=== PATIENT | male | born 1960 | race Caucasian/White ===

== ENCOUNTER 2017-05-21 18:24 | Observation (INO) | payer SELFPAY ==
[~2017-05-21] VITALS: Ht 172.7 cm; Wt 58.8 kg
[2017-05-21] MEDS ORDERED: ASPI-496 PO (18:53)
[2017-05-21] MEDS ORDERED: ONDANSETRON 2MG/ML, 2ML IVPush ONE (19:00)
[2017-05-21] MEDS ORDERED: SODIUM CHLORIDE FLUSH 10ML SYR IVF ONE (19:00)
[2017-05-21] MEDS: ASPIRIN 81 MG TABLET CHEW PO ONE ×2 (19:00→23:21)
[2017-05-21] MEDS ORDERED: MORPHINE SULFATE 4 MG/ML, 1ML ONE ×2 (19:12→22:31)
[2017-05-21] MEDS ORDERED: ONDANSETRON 2MG/ML, 2ML ONE (19:12)
[2017-05-21] MEDS: MORPHINE SULFATE 4 MG/ML, 1ML IVPush PRN ×2 (19:16→22:33)
[2017-05-21 19:30] LABS: BLOOD UREA NITROGEN 16 mg/dL (7-18)
[2017-05-21 19:35] LABS: IS PT STATUS REG ER OR PRE ER? YES
[2017-05-21 23:11] LABS: IS PT STATUS REG ER OR PRE ER? YES
[2017-05-21] MEDS ORDERED: ASPIRIN 81 MG TABLET CHEW ONE ×2 (23:16→23:19)
[2017-05-22 00:49] VITALS: BP 141/89
[2017-05-22 02:30] VITALS: BP 141/89
[2017-05-22 07:13] LABS: IS PT STATUS REG ER OR PRE ER? NO
[2017-05-22] MEDS ORDERED: IBUP400T PO (07:15)
[2017-05-22 08:24] VITALS: BP 118/80
[2017-05-22] MEDS ORDERED: ASPIRIN 81 MG TABLET EC PO SCH (09:00)
[2017-05-22] MEDS ORDERED: CALCIUM CARBONATE 500 MG TABLET PO SCH (09:00)
== END 2017-05-22 09:44 | disposition home or self-care (01) ==
LOC: ED 21:29 → EDIP 23:15 → INTOOBSV 23:15 → 5SO 05-22 00:36
PROVIDERS: ADMIT Internal Medicine; ATTEND Internal Medicine
DX: M94.0 Chondrocostal junction syndrome [Tietze] (principal); I25.10 Atherosclerotic heart disease of native coronary artery without angina pectoris; I25.2 Old myocardial infarction; Z95.5 Presence of coronary angioplasty implant and graft; I10 Essential (primary) hypertension; Z83.3 Family history of diabetes mellitus; D72.828 Other elevated white blood cell count; E83.51 Hypocalcemia
CPT/HCPCS: 36415; 71010; 80048; 82040; 83880; 84484; 85025; 93005; 96374; 96375; 96376; 99285; G0378; J2405

== ENCOUNTER 2017-07-07 18:53 | Inpatient (IN) | payer MEDICAID, OTHER ==
[~2017-07-07] VITALS: Ht 172.7 cm; Wt 60.1 kg
[~2017-07-07 18:53] MED LIST: ASPI-496 PO; IBUP400T PO
[2017-07-07 19:51] LABS: HEMATOCRIT 46.4 % (39.2-51.8); HEMOGLOBIN 15.3 g/dL (13.7-18.0); WHITE BLOOD COUNT 14.9 x10^3/uL (3.4-10)
[2017-07-07 20:02] LABS: BLOOD UREA NITROGEN 18 mg/dL (7-18)
[2017-07-07 20:06] LABS: IS PT STATUS REG ER OR PRE ER? YES
[2017-07-07 21:06] LABS: IS PT STATUS REG ER OR PRE ER? YES
[2017-07-07] MEDS ORDERED: CEFTRIAXONE PMX 1GM/50ML 50 ML ONE (21:23)
[2017-07-07] MEDS ORDERED: SODIUM CHLORIDE FLUSH 10ML SYR IVF PRN (21:30)
[2017-07-07] MEDS ORDERED: HEPARIN 5,000 UNITS/ML, 1ML IV ONE (21:30)
[2017-07-07] MEDS ORDERED: HEPARIN 25,000 UNITS/500ML PMX 500 ML IV PRN (21:30)
[2017-07-07] MEDS ORDERED: HEPARIN 5,000 UNITS/ML, 1ML IV PRN (21:30)
[2017-07-07] MEDS ORDERED: CEFTRIAXONE PMX 1GM/50ML 50 ML IV ONE (21:30)
[2017-07-07] MEDS ORDERED: HEPARIN 5,000 UNITS/ML, 1ML ONE (21:38)
[2017-07-07] MEDS ORDERED: HEPARIN 25,000 UNITS/500ML PMX 500 ML ONE (21:38)
[2017-07-07 22:16] VITALS: BP 134/91
[2017-07-07] MEDS ORDERED: ENALAPRILAT 1.25 MG/ML, 2ML IVPush PRN (23:00)
[2017-07-07] MEDS ORDERED: morphine SULFATE 10 MG/ML, 1ML IVPush PRN (23:00)
[2017-07-07] MEDS ORDERED: NITROGLYCERIN 0.4 MG BOTTLE (25 TABS) SL PRN (23:00)
[2017-07-07] MEDS ORDERED: ONDANSETRON 2MG/ML, 2ML IVPush PRN (23:00)
[2017-07-07] MEDS ORDERED: TEMAZEPAM 15 MG CAPSULE PO PRN (23:00)
[2017-07-08] MEDS: ATORVASTATIN 20 MG TABLET PO SCH ×2 (00:37→20:57)
[2017-07-08] MEDS: METOPROLOL TARTRATE 25 MG TABLET PO SCH ×4 (00:37→20:57)
[2017-07-08] MEDS: SODIUM CHLORIDE 0.9% 1,000 ML IV SCH ×2 (00:37→14:07)
[2017-07-08 02:00] VITALS: BP 133/89
[2017-07-08 03:15] LABS: IS PT STATUS REG ER OR PRE ER? NO
[2017-07-08 04:14] LABS: HEMATOCRIT 46.1 % (39.2-51.8); HEMOGLOBIN 15.1 g/dL (13.7-18.0); WHITE BLOOD COUNT 11.8 x10^3/uL (3.4-10)
[2017-07-08 04:27] LABS: BLOOD UREA NITROGEN 18 mg/dL (7-18)
[2017-07-08] MEDS ORDERED: HEPARIN 5,000 UNITS/ML, 1ML IV PRN (05:30)
[2017-07-08] MEDS ORDERED: HEPARIN 25,000 UNITS/500ML PMX 500 ML IV PRN ×2 (05:30)
[2017-07-08 08:47] LABS: IS PT STATUS REG ER OR PRE ER? NO
[2017-07-08 09:24] VITALS: BP 130/85
[2017-07-08] MEDS: CEFTAZIDIME PMX 2 GM/50ML 50 ML IV SCH ×2 (09:25→20:58)
[2017-07-08 14:07] VITALS: BP 124/81
[2017-07-08] MEDS ORDERED: MIDAZOLAM 1 MG/ML, 5ML ONE (16:40)
[2017-07-08] MEDS ORDERED: FENTANYL PF 100 MCG/2ML ONE (16:40)
[2017-07-08] MEDS ORDERED: LIDOCAINE 2%, 20ML ONE (16:41)
[2017-07-08] MEDS ORDERED: HEPARIN 1,000 UNITS/ML, 10ML ONE (16:41)
[2017-07-08] MEDS ORDERED: TICAGRELOR 90 MG TABLET ONE (16:41)
[2017-07-08] MEDS ORDERED: VERAPAMIL 2.5 MG/ML, 2ML ONE (16:41)
[2017-07-08] MEDS ORDERED: BIVALIRUDIN 250 MG ONE (16:41)
[2017-07-08 18:40] VITALS: BP 115/79
[2017-07-08] MEDS: ACETAMINOPHEN 325 MG TABLET PO PRN (21:00)
[2017-07-09 01:29] VITALS: BP 112/75
[2017-07-09] MEDS: SODIUM CHLORIDE 0.9% 1,000 ML IV SCH ×2 (02:50→15:31)
[2017-07-09] MEDS: ACETAMINOPHEN 325 MG TABLET PO PRN (04:21)
[2017-07-09 05:38] LABS: HEMATOCRIT 44.1 % (39.2-51.8); HEMOGLOBIN 14.6 g/dL (13.7-18.0); WHITE BLOOD COUNT 12.4 x10^3/uL (3.4-10)
[2017-07-09 06:03] LABS: BLOOD UREA NITROGEN 14 mg/dL (7-18)
[2017-07-09 06:40] VITALS: BP 127/84
[2017-07-09] MEDS: CLOPIDOGREL 75 MG TABLET PO SCH (08:48)
[2017-07-09] MEDS: CEFTAZIDIME PMX 2 GM/50ML 50 ML IV SCH (08:48)
[2017-07-09] MEDS: METOPROLOL TARTRATE 25 MG TABLET PO SCH ×2 (08:48→19:52)
[2017-07-09] MEDS: ASPIRIN 81 MG TABLET EC PO SCH (08:48)
[2017-07-09] MEDS: AMOXICILLIN/CLAV 875-125MG TABLET PO SCH ×2 (09:53→19:52)
[2017-07-09] MEDS: LISINOPRIL 5 MG TABLET PO SCH (09:53)
[2017-07-09 14:32] VITALS: BP 146/97
[2017-07-09 19:28] VITALS: BP 112/71
[2017-07-09] MEDS: ATORVASTATIN 20 MG TABLET PO SCH (19:52)
[2017-07-10 01:49] VITALS: BP 97/62
[2017-07-10] MEDS: SODIUM CHLORIDE 0.9% 1,000 ML IV SCH (05:30)
[2017-07-10 05:49] LABS: HEMOGLOBIN 14.9 g/dL (13.7-18.0); WHITE BLOOD COUNT 11.1 x10^3/uL (3.4-10)
[2017-07-10] MEDS: ASPIRIN 81 MG TABLET EC PO SCH (06:21)
[2017-07-10 06:47] VITALS: BP 122/75
[2017-07-10] MEDS: METOPROLOL TARTRATE 25 MG TABLET PO SCH (07:59)
[2017-07-10] MEDS: AMOXICILLIN/CLAV 875-125MG TABLET PO SCH (07:59)
[2017-07-10] MEDS: CLOPIDOGREL 75 MG TABLET PO SCH (07:59)
[2017-07-10] MEDS: LISINOPRIL 5 MG TABLET PO SCH (08:00)
[2017-07-10] MEDS ORDERED: METO25TA35 PO (08:33)
[2017-07-10] MEDS ORDERED: ASPI-621 PO (08:33)
[2017-07-10] MEDS ORDERED: LISI5TAB7 PO (08:33)
[2017-07-10] MEDS ORDERED: AMOX1TAB12 PO (08:33)
[2017-07-10] MEDS ORDERED: CLOP75TA PO (08:33)
[2017-07-10] MEDS ORDERED: ATOR20TA9 PO (08:33)
[2017-07-10 12:49] VITALS: BP 123/81
== END 2017-07-10 15:15 | disposition home or self-care (01) | DRG 281 ==
LOC: ED 21:34 → EDIP 21:40 → 5SO 22:14 → DCLOUNGE 07-10 14:06
PROVIDERS: ADMIT Internal Medicine; ATTEND Internal Medicine
PROC: 4A023N7 Measurement of Cardiac Sampling and Pressure, Left Heart, Percutaneous Approach (ICD-10-PCS; principal; 2017-07-08)
PROC: B2111ZZ Fluoroscopy of Multiple Coronary Arteries using Low Osmolar Contrast (ICD-10-PCS; 2017-07-08)
PROC: B2151ZZ Fluoroscopy of Left Heart using Low Osmolar Contrast (ICD-10-PCS; 2017-07-08)
DX: I21.09 ST elevation (STEMI) myocardial infarction involving other coronary artery of anterior wall (principal); L03.115 Cellulitis of right lower limb; E78.5 Hyperlipidemia, unspecified; D47.3 Essential (hemorrhagic) thrombocythemia; I25.5 Ischemic cardiomyopathy; I11.9 Hypertensive heart disease without heart failure; I25.10 Atherosclerotic heart disease of native coronary artery without angina pectoris; I25.2 Old myocardial infarction; Z82.49 Family history of ischemic heart disease and other diseases of the circulatory system; Z83.3 Family history of diabetes mellitus; Z86.73 Personal history of transient ischemic attack (TIA), and cerebral infarction without residual deficits; Z87.891 Personal history of nicotine dependence; Z91.14 Patient's other noncompliance with medication regimen; Z91.19 Patient's noncompliance with other medical treatment and regimen; Z95.5 Presence of coronary angioplasty implant and graft; Z98.41 Cataract extraction status, right eye
CPT/HCPCS: 36415; 80048; 80061; 82040; 83735; 84100; 84439; 84443; 84484; 85025; 85520; 93005; 93306; 93458; 96374; 99156; C1894; J0583; J0696; J1644; J2250; J3010; J3490; J0713; J2270; J7030; Q9967

== ENCOUNTER 2017-08-07 18:30 | Inpatient (IN) | payer MEDICAID, OTHER ==
[~2017-08-07] VITALS: Ht 172.7 cm; Wt 57.1 kg
[~2017-08-07 18:30] MED LIST changes: +AMOX1TAB12 PO; +ASPI-621 PO; +ATOR20TA9 PO; +CLOP75TA PO; +IBUP-1221 PO; -IBUP400T PO; +LISI5TAB7 PO; +METO25TA35 PO
[2017-08-07] MEDS ORDERED: ASPIRIN 81 MG TABLET CHEW PO ONE (19:00)
[2017-08-07] MEDS ORDERED: SODIUM CHLORIDE FLUSH 10ML SYR IVF ONE (19:00)
[2017-08-07] MEDS ORDERED: MORPHINE SULFATE 4 MG/ML, 1ML IVPush PRN (19:00)
[2017-08-07] MEDS ORDERED: ONDANSETRON 2MG/ML, 2ML IVPush ONE (19:00)
[2017-08-07 19:27] LABS: HEMATOCRIT 51.6 % (39.2-51.8); HEMOGLOBIN 17.2 g/dL (13.7-18.0); WHITE BLOOD COUNT 15.9 x10^3/uL (3.4-10)
[2017-08-07 19:30] LABS: BLOOD UREA NITROGEN 12 mg/dL (7-18)
[2017-08-07 19:35] LABS: IS PT STATUS REG ER OR PRE ER? YES
[2017-08-07] MEDS ORDERED: MORPHINE SULFATE 4 MG/ML, 1ML ONE (19:44)
[2017-08-07] MEDS ORDERED: ASPIRIN 81 MG TABLET CHEW ONE (19:45)
[2017-08-07] MEDS ORDERED: ONDANSETRON 2MG/ML, 2ML ONE (19:45)
[2017-08-07] MEDS ORDERED: NITROGLYCERIN SINGLE TAB 0.4 MG SL ONE ×2 (19:52→20:26)
[2017-08-07] MEDS: NITROGLYCERIN SINGLE TAB 0.4 MG SL PRN ×2 (20:00→20:30)
[2017-08-07] MEDS ORDERED: KETOROLAC 30 MG/1 ML ONE (20:55)
[2017-08-07] MEDS ORDERED: KETOROLAC 30 MG/1 ML IVPush ONE (21:00)
[2017-08-07] MEDS ORDERED: NS + 20MEQ KCL 1,000 ML IV SCH (21:27)
[2017-08-07] MEDS ORDERED: ACETAMINOPHEN 325 MG TABLET PO PRN (21:30)
[2017-08-07] MEDS ORDERED: DOCUSATE 100 MG CAPSULE PO PRN (21:30)
[2017-08-07] MEDS ORDERED: POLYETHYLENE GLYCOL 17 GM PACKET PO PRN (21:30)
[2017-08-07] MEDS ORDERED: ONDANSETRON 2MG/ML, 2ML IVPush PRN (21:30)
[2017-08-07] MEDS ORDERED: morphine SULFATE 10 MG/ML, 1ML IVPush PRN (21:30)
[2017-08-07] MEDS ORDERED: HYDROcodone/APAP 5/325 TABLET PO PRN (21:30)
[2017-08-07] MEDS ORDERED: ATORVASTATIN 20 MG TABLET PO SCH (21:30)
[2017-08-08] MEDS: METOPROLOL TARTRATE 25 MG TABLET PO SCH ×2 (00:23→08:14)
[2017-08-08 01:53] VITALS: BP 113/76
[2017-08-08] MEDS ORDERED: ASPIRIN 81 MG TABLET EC PO SCH (06:00)
[2017-08-08 06:21] LABS: IS PT STATUS REG ER OR PRE ER? NO
[2017-08-08 08:13] VITALS: BP 115/72
[2017-08-08] MEDS ORDERED: CLOPIDOGREL 75 MG TABLET PO SCH (09:00)
[2017-08-08] MEDS ORDERED: LISINOPRIL 5 MG TABLET PO SCH (09:00)
[2017-08-08] MEDS ORDERED: SENNA/DOCUSATE TABLET PO SCH (09:00)
[2017-08-08 10:36] LABS: HEMATOCRIT 47.2 % (39.2-51.8); HEMOGLOBIN 15.7 g/dL (13.7-18.0); WHITE BLOOD COUNT 11.1 x10^3/uL (3.4-10)
[2017-08-08 10:44] LABS: IS PT STATUS REG ER OR PRE ER? NO
[2017-08-08 14:00] VITALS: BP 120/62
[2017-08-08] MEDS ORDERED: LISI5TAB7 PO (15:44)
[2017-08-08] MEDS ORDERED: METO25TA35 PO (15:44)
[2017-08-08] MEDS ORDERED: ASPI-621 PO (15:44)
[2017-08-08] MEDS ORDERED: ATOR20TA9 PO (15:44)
[2017-08-08] MEDS ORDERED: CLOP75TA PO (15:44)
== END 2017-08-08 19:10 | disposition home or self-care (01) | DRG 313 ==
LOC: ED 20:57 → EDIP 21:02 → SUATTDRO 21:08 → ED 21:32 → 5SO 22:14
PROVIDERS: ADMIT Family Medicine; ATTEND Family Medicine
DX: R07.89 Other chest pain (principal); I25.2 Old myocardial infarction; E44.0 Moderate protein-calorie malnutrition; Z68.1 Body mass index [BMI] 19.9 or less, adult; I25.10 Atherosclerotic heart disease of native coronary artery without angina pectoris; D72.829 Elevated white blood cell count, unspecified; D75.89 Other specified diseases of blood and blood-forming organs; E78.5 Hyperlipidemia, unspecified; I10 Essential (primary) hypertension; I25.5 Ischemic cardiomyopathy; Z66 Do not resuscitate; Z82.49 Family history of ischemic heart disease and other diseases of the circulatory system; Z83.3 Family history of diabetes mellitus; Z95.5 Presence of coronary angioplasty implant and graft; Z91.14 Patient's other noncompliance with medication regimen; Z90.49 Acquired absence of other specified parts of digestive tract; Z98.49 Cataract extraction status, unspecified eye; Z79.82 Long term (current) use of aspirin; Z79.899 Other long term (current) drug therapy
CPT/HCPCS: 36415; 71010; 80048; 82040; 83880; 84484; 85025; 93005; 96374; 96375; J1885; J2405; J3480; J2270

== ENCOUNTER 2018-01-15 20:16 | Emergency (ER) | payer MEDICAID ==
[~2018-01-15] VITALS: Ht 172.7 cm; Wt 62.8 kg
[2018-01-15 20:54] LABS: BASOPHILS # (AUTO) 0.06 x10^3/uL (0-0.1); BASOPHILS % (AUTO) 1 % (0-1); EOSINOPHILS # (AUTO) 0.43 x10^3/uL (0-0.4); EOSINOPHILS % (AUTO) 3 % (1-7); LYMPHOCYTES # (AUTO) 2.35 x10^3/uL (1-3.4); LYMPHOCYTES % (AUTO) 19 % (22-44); MD NO; MEAN CORPUSCULAR HEMOGLOBIN 26.6 pg (27.5-34.5); MEAN CORPUSCULAR HGB CONC 32.8 g/dL (33.2-36.2); MEAN CORPUSCULAR VOLUME 81.1 fL (81-97); MEAN PLATELET VOLUME 7.3 fL (7.4-10.4); MONOCYTES # (AUTO) 0.64 x10^3/uL (0.2-0.8); MONOCYTES % (AUTO) 5 % (2-9); NEUTROPHILS # (AUTO) 9.27 x10^3/uL (1.8-6.8); NEUTROPHILS % (AUTO) 73 % (42-75); PLATELET COUNT 802 x10^3/uL (130-400); RED BLOOD COUNT 6.71 x10^6/uL (4.38-5.82); RED CELL DISTRIBUTION WIDTH 16.6 % (9.4-14.8)
[2018-01-15] MEDS ORDERED: SODIUM CHLORIDE FLUSH 10ML SYR IVF ONE ×2 (21:00→21:30)
[2018-01-15 21:07] LABS: ALBUMIN 3.4 g/dL (3.4-5.0); ANION GAP 7 mmol/L (5-15); CALCIUM 8.1 mg/dL (8.5-10.1); CHLORIDE 106 mmol/L (98-107)
[2018-01-15 21:11] LABS: TROPONIN I < 0.015 ng/mL (0.000-0.045)
[2018-01-15 21:26] VITALS: BP 123/84
[2018-01-15] MEDS ORDERED: MORPHINE SULFATE 4 MG/ML, 1ML ONE (21:30)
[2018-01-15] MEDS ORDERED: MORPHINE SULFATE 4 MG/ML, 1ML IVPush PRN (21:30)
[2018-01-15] MEDS ORDERED: ONDANSETRON 2MG/ML, 2ML IVPush ONE (21:30)
[2018-01-15] MEDS ORDERED: ASPIRIN 81 MG TABLET CHEW PO ONE (21:30)
[2018-01-15] MEDS ORDERED: ONDANSETRON 2MG/ML, 2ML ONE (21:31)
[2018-01-15] MEDS ORDERED: ASPIRIN 81 MG TABLET CHEW ONE (21:31)
== END 2018-01-15 23:06 | disposition home or self-care (01) ==
LOC: ED 22:54
DX: R07.89 Other chest pain (principal); I10 Essential (primary) hypertension; I25.10 Atherosclerotic heart disease of native coronary artery without angina pectoris; I25.2 Old myocardial infarction; Z79.82 Long term (current) use of aspirin; Z95.1 Presence of aortocoronary bypass graft
CPT/HCPCS: 36415; 71046; 80048; 82040; 84484; 85025; 93005; 99285

== ENCOUNTER 2018-06-11 20:49 | Emergency (ER) | payer MEDICAID ==
[~2018-06-11] VITALS: Ht 172.7 cm; Wt 58.0 kg
[2018-06-11] MEDS ORDERED: ASPIRIN 325 MG TABLET ONE (21:54)
[2018-06-11] MEDS ORDERED: ASPIRIN 325 MG TABLET PO ONE (22:00)
[2018-06-11 22:04] LABS: BASOPHILS # (AUTO) 0.04 x10^3/uL (0-0.1); BASOPHILS % (AUTO) 0 % (0-1); EOSINOPHILS # (AUTO) 0.23 x10^3/uL (0-0.4); EOSINOPHILS % (AUTO) 2 % (1-7); LYMPHOCYTES # (AUTO) 1.68 x10^3/uL (1-3.4); LYMPHOCYTES % (AUTO) 13 % (22-44); MD NO; MEAN CORPUSCULAR HEMOGLOBIN 26.2 pg (27.5-34.5); MEAN CORPUSCULAR HGB CONC 32.9 g/dL (33.2-36.2); MEAN CORPUSCULAR VOLUME 79.6 fL (81-97); MEAN PLATELET VOLUME 7.4 fL (7.4-10.4); MONOCYTES # (AUTO) 0.64 x10^3/uL (0.2-0.8); MONOCYTES % (AUTO) 5 % (2-9); NEUTROPHILS # (AUTO) 10.86 x10^3/uL (1.8-6.8); NEUTROPHILS % (AUTO) 81 % (42-75); PLATELET COUNT 704 x10^3/uL (130-400); RED BLOOD COUNT 6.46 x10^6/uL (4.38-5.82); RED CELL DISTRIBUTION WIDTH 16.5 % (9.4-14.8)
[2018-06-11 22:15] LABS: ALBUMIN 3.5 g/dL (3.4-5.0); ANION GAP 5 mmol/L (5-15); CALCIUM 9.1 mg/dL (8.5-10.1); CHLORIDE 105 mmol/L (98-107)
[2018-06-11 22:20] LABS: ALANINE AMINOTRANSFERASE 25 U/L (12-78); ALKALINE PHOSPHATASE 51 U/L (45-117); BILIRUBIN,TOTAL 0.5 mg/dL (0.2-1.0); CREATININE 1.07 mg/dL (0.7-1.3); TOTAL PROTEIN 6.5 g/dL (6.4-8.2); TROPONIN I < 0.015 ng/mL (0.000-0.045)
[2018-06-11 23:14] VITALS: BP 123/89
== END 2018-06-11 23:16 | disposition home or self-care (01) ==
LOC: ED 22:53
DX: R07.89 Other chest pain (principal); R20.2 Paresthesia of skin; I25.10 Atherosclerotic heart disease of native coronary artery without angina pectoris; Z95.818 Presence of other cardiac implants and grafts
CPT/HCPCS: 36415; 71046; 80053; 84484; 85025; 93005; 99285

== ENCOUNTER 2018-07-01 23:40 | Emergency (ER) | payer MEDICAID ==
[~2018-07-01] VITALS: Ht 172.7 cm; Wt 59.0 kg
[2018-07-02] MEDS ORDERED: DIPHENHYDRAMINE 50 MG/ML, 1ML ONE (00:24)
[2018-07-02] MEDS ORDERED: METOCLOPRAMIDE 5 MG/ML, 2ML ONE (00:24)
[2018-07-02] MEDS ORDERED: METOCLOPRAMIDE 5 MG/ML, 2ML IVPush ONE (00:30)
[2018-07-02] MEDS ORDERED: SODIUM CHLORIDE 0.9% 1,000ML IVBOLUS ONE (00:30)
[2018-07-02] MEDS ORDERED: DIPHENHYDRAMINE 50 MG/ML, 1ML IVPush ONE (00:30)
[2018-07-02 00:48] LABS: BASOPHILS # (AUTO) 0.05 x10^3/uL (0-0.1); BASOPHILS % (AUTO) 1 % (0-1); EOSINOPHILS # (AUTO) 0.27 x10^3/uL (0-0.4); EOSINOPHILS % (AUTO) 3 % (1-7); LYMPHOCYTES # (AUTO) 1.62 x10^3/uL (1-3.4); LYMPHOCYTES % (AUTO) 16 % (22-44); MD NO; MEAN CORPUSCULAR HEMOGLOBIN 26.1 pg (27.5-34.5); MEAN CORPUSCULAR HGB CONC 32.7 g/dL (33.2-36.2); MEAN CORPUSCULAR VOLUME 79.7 fL (81-97); MEAN PLATELET VOLUME 7.2 fL (7.4-10.4); MONOCYTES # (AUTO) 0.47 x10^3/uL (0.2-0.8); MONOCYTES % (AUTO) 5 % (2-9); NEUTROPHILS # (AUTO) 7.48 x10^3/uL (1.8-6.8); NEUTROPHILS % (AUTO) 76 % (42-75); PLATELET COUNT 604 x10^3/uL (130-400); RED BLOOD COUNT 6.12 x10^6/uL (4.38-5.82); RED CELL DISTRIBUTION WIDTH 16.3 % (9.4-14.8)
[2018-07-02 00:51] LABS: ALANINE AMINOTRANSFERASE 21 U/L (12-78); ANION GAP 7 mmol/L (5-15); CALCIUM 7.7 mg/dL (8.5-10.1); CHLORIDE 109 mmol/L (98-107); CREATININE 1.03 mg/dL (0.7-1.3)
[2018-07-02 00:53] LABS: ALKALINE PHOSPHATASE 43 U/L (45-117); BILIRUBIN,TOTAL 0.5 mg/dL (0.2-1.0); TOTAL PROTEIN 5.8 g/dL (6.4-8.2)
[2018-07-02 01:19] VITALS: BP 134/76
== END 2018-07-02 01:21 | disposition home or self-care (01) ==
LOC: ED 23:59
DX: J01.00 Acute maxillary sinusitis, unspecified (principal)
CPT/HCPCS: 36415; 70450; 80053; 80307; 83690; 85025; 96374; 96375; 99285; J1200; J2765; J7030

== ENCOUNTER 2018-08-22 00:45 | Observation (INO) | payer MEDICAID ==
[~2018-08-22] VITALS: Ht 172.7 cm; Wt 58.1 kg
[2018-08-22] MEDS ORDERED: ESCI10TA10 PO (01:04)
[2018-08-22] MEDS ORDERED: NITROGLYCERIN SINGLE TAB 0.4 MG SL ONE (01:19)
[2018-08-22] MEDS ORDERED: ASPIRIN 81 MG TABLET CHEW ONE (01:19)
[2018-08-22] MEDS ORDERED: NITROGLYCERIN SINGLE TAB 0.4 MG SL PRN (01:30)
[2018-08-22] MEDS ORDERED: SODIUM CHLORIDE FLUSH 10ML SYR IVF ONE (01:30)
[2018-08-22] MEDS ORDERED: ASPIRIN 81 MG TABLET CHEW PO ONE (01:30)
[2018-08-22] MEDS ORDERED: MORPHINE SULFATE 4 MG/ML, 1ML ONE (01:47)
[2018-08-22] MEDS: MORPHINE SULFATE 4 MG/ML, 1ML IVPush PRN ×2 (01:49→03:24)
[2018-08-22 01:59] LABS: BASOPHILS # (AUTO) 0.05 x10^3/uL (0-0.1); BASOPHILS % (AUTO) 0 % (0-1); EOSINOPHILS % (AUTO) 3 % (1-7); LYMPHOCYTES # (AUTO) 2.05 x10^3/uL (1-3.4); LYMPHOCYTES % (AUTO) 16 % (22-44); MD NO; MEAN CORPUSCULAR HEMOGLOBIN 26.4 pg (27.5-34.5); MEAN CORPUSCULAR HGB CONC 33.4 g/dL (33.2-36.2); MEAN PLATELET VOLUME 7.1 fL (7.4-10.4); MONOCYTES # (AUTO) 0.57 x10^3/uL (0.2-0.8); MONOCYTES % (AUTO) 4 % (2-9); NEUTROPHILS # (AUTO) 9.83 x10^3/uL (1.8-6.8); NEUTROPHILS % (AUTO) 76 % (42-75); PLATELET COUNT 736 x10^3/uL (130-400); RED CELL DISTRIBUTION WIDTH 17.7 % (9.4-14.8)
[2018-08-22 02:04] LABS: INTERNATIONAL NORMALIZED RATIO 1.04 (0.93-1.1); PROTHROMBIN TIME 10.8 Seconds (9.6-11.5)
[2018-08-22 02:05] LABS: ALBUMIN 3.7 g/dL (3.4-5.0); ANION GAP 8 mmol/L (5-15); CALCIUM 8.8 mg/dL (8.5-10.1); CHLORIDE 106 mmol/L (98-107)
[2018-08-22 02:11] LABS: ALANINE AMINOTRANSFERASE 20 U/L (12-78); ALKALINE PHOSPHATASE 55 U/L (45-117); BILIRUBIN,TOTAL 0.8 mg/dL (0.2-1.0); CREATININE 1.07 mg/dL (0.7-1.3); TOTAL PROTEIN 6.8 g/dL (6.4-8.2); TROPONIN I 0.016 ng/mL (0.000-0.045)
[2018-08-22] MEDS ORDERED: SODIUM CHLORIDE FLUSH 10ML SYR IVF PRN (02:30)
[2018-08-22 03:03] VITALS: BP 157/100
[2018-08-22] MEDS ORDERED: SODIUM CHLORIDE 0.9% 1,000 ML IV SCH (04:27)
[2018-08-22] MEDS ORDERED: ACETAMINOPHEN 325 MG TABLET PO PRN (04:30)
[2018-08-22] MEDS ORDERED: DOCUSATE 100 MG CAPSULE PO PRN (04:30)
[2018-08-22] MEDS ORDERED: POLYETHYLENE GLYCOL 17 GM PACKET PO PRN (04:30)
[2018-08-22] MEDS ORDERED: hydrALAzine 20 MG/ML, 1ML IVPush PRN (04:30)
[2018-08-22] MEDS ORDERED: ONDANSETRON 2MG/ML, 2ML IVPush PRN (04:30)
[2018-08-22] MEDS ORDERED: PROMETHAZINE 25 MG/ML, 1ML IM PRN (04:30)
[2018-08-22] MEDS ORDERED: NITROGLYCERIN 0.4 MG BOTTLE (25 TABS) SL PRN (04:30)
[2018-08-22] MEDS ORDERED: OXYcodone IR 5MG TABLET PO PRN (04:30)
[2018-08-22] MEDS ORDERED: morphine SULFATE 10 MG/ML, 1ML IVPush PRN (04:30)
[2018-08-22] MEDS ORDERED: LABETALOL 5MG/ML, 20ML IVPush PRN (04:30)
[2018-08-22] MEDS ORDERED: ONDANSETRON ODT 4 MG PO PRN (04:30)
[2018-08-22] MEDS ORDERED: BISACODYL 10 MG SUPP PR PRN (04:30)
[2018-08-22] MEDS: ASPIRIN 325 MG TABLET EC PO SCH (05:01)
[2018-08-22] MEDS: HEPARIN 5,000 UNITS/ML, 1ML SQ SCH ×3 (05:02→21:46)
[2018-08-22 05:41] LABS: CULTURE INDICATED? NO; MICROSCOPIC NOT IND
[2018-08-22 06:02] LABS: FREE T4 (FREE THYROXINE) 0.9 ng/dL (0.76-1.46); THYROID STIMULATING HORMONE 1.07 mIU/L (0.358-3.740)
[2018-08-22 06:05] LABS: HEMOGLOBIN A1C 5.2 % (4.2-6.3)
[2018-08-22 06:11] LABS: CHOL/HDL RATIO 2.4; CHOLESTEROL, TOTAL 127 mg/dL (140-239); HDL CHOL % 41 % (26-37); HDL CHOLESTEROL (DIRECT) 52 mg/dL (40-60); LDL CHOLESTEROL,CALCULATED 64 mg/dL (54-169); LDL/HDL RATIO 1.2 (0.5-3.0); TRIGLYCERIDES 57 mg/dL (50-200); TROPONIN I 0.022 ng/mL (0.000-0.045); VLDL CHOLESTEROL 11 mg/dL (0-25)
[2018-08-22 06:44] VITALS: BP 143/90
[2018-08-22] MEDS: LOSARTAN 50MG TABLET PO SCH (08:13)
[2018-08-22] MEDS: CITALOPRAM 20 MG TABLET PO SCH (08:13)
[2018-08-22] MEDS ORDERED: REGADENOSON 0.4 MG/5 ML SYRINGE ONE (08:20)
[2018-08-22] MEDS ORDERED: NITR0.4T28 SL (12:42)
[2018-08-22] MEDS ORDERED: ATOR40TA78 PO (12:42)
[2018-08-22] MEDS ORDERED: LISI-167 PO (12:42)
[2018-08-22 13:26] LABS: BASOPHILS # (AUTO) 0.03 x10^3/uL (0-0.1); BASOPHILS % (AUTO) 0 % (0-1); EOSINOPHILS # (AUTO) 0.25 x10^3/uL (0-0.4); EOSINOPHILS % (AUTO) 2 % (1-7); LYMPHOCYTES % (AUTO) 10 % (22-44); MD NO; MEAN CORPUSCULAR HEMOGLOBIN 25.7 pg (27.5-34.5); MEAN CORPUSCULAR HGB CONC 32.8 g/dL (33.2-36.2); MEAN CORPUSCULAR VOLUME 78.3 fL (81-97); MEAN PLATELET VOLUME 7.1 fL (7.4-10.4); MONOCYTES % (AUTO) 3 % (2-9); NEUTROPHILS # (AUTO) 10.35 x10^3/uL (1.8-6.8); NEUTROPHILS % (AUTO) 85 % (42-75); PLATELET COUNT 661 x10^3/uL (130-400); RED BLOOD COUNT 6.58 x10^6/uL (4.38-5.82); RED CELL DISTRIBUTION WIDTH 17.9 % (9.4-14.8)
[2018-08-22] MEDS ORDERED: GABAPENTIN 100 MG CAPSULE PO PRN (13:30)
[2018-08-22 13:33] LABS: TROPONIN I < 0.015 ng/mL (0.000-0.045)
[2018-08-22 13:42] VITALS: BP 142/93
[2018-08-22] MEDS: METOPROLOL TARTRATE 25 MG TABLET PO SCH (18:03)
[2018-08-22 18:39] VITALS: BP 122/77
[2018-08-22] MEDS ORDERED: ATORVASTATIN 20 MG TABLET PO SCH (21:00)
[2018-08-23 01:08] VITALS: BP 139/91
[2018-08-23 04:53] LABS: BASOPHILS # (AUTO) 0.13 x10^3/uL (0-0.1); BASOPHILS % (AUTO) 1 % (0-1); EOSINOPHILS # (AUTO) 0.43 x10^3/uL (0-0.4); EOSINOPHILS % (AUTO) 4 % (1-7); LYMPHOCYTES # (AUTO) 1.79 x10^3/uL (1-3.4); LYMPHOCYTES % (AUTO) 15 % (22-44); MD NO; MEAN CORPUSCULAR HGB CONC 32.9 g/dL (33.2-36.2); MEAN CORPUSCULAR VOLUME 79.1 fL (81-97); MEAN PLATELET VOLUME 7.4 fL (7.4-10.4); MONOCYTES # (AUTO) 0.41 x10^3/uL (0.2-0.8); MONOCYTES % (AUTO) 4 % (2-9); NEUTROPHILS # (AUTO) 9.05 x10^3/uL (1.8-6.8); NEUTROPHILS % (AUTO) 77 % (42-75); PLATELET COUNT 637 x10^3/uL (130-400); RED CELL DISTRIBUTION WIDTH 17.7 % (9.4-14.8)
[2018-08-23 05:06] LABS: CHLORIDE 107 mmol/L (98-107)
[2018-08-23 05:24] LABS: % IRON SATURATION 33 % (20-55); ALANINE AMINOTRANSFERASE 19 U/L (12-78); ALBUMIN 3.5 g/dL (3.4-5.0); ALKALINE PHOSPHATASE 54 U/L (45-117); ANION GAP 9 mmol/L (5-15); BILIRUBIN,TOTAL 0.8 mg/dL (0.2-1.0); CALCIUM 8.8 mg/dL (8.5-10.1); CREATININE 1.06 mg/dL (0.7-1.3); IRON LEVEL 126 mcg/dL (65-175); TOTAL IRON BINDING CAPACITY 386 mcg/dL (250-450); TOTAL PROTEIN 6.7 g/dL (6.4-8.2); TRANSFERRIN 293 mg/dL (200-360)
[2018-08-23] MEDS: ASPIRIN 325 MG TABLET EC PO SCH (06:01)
[2018-08-23] MEDS: HEPARIN 5,000 UNITS/ML, 1ML SQ SCH ×2 (06:01→13:19)
[2018-08-23] MEDS: METOPROLOL TARTRATE 25 MG TABLET PO SCH (06:01)
[2018-08-23 07:00] VITALS: BP 127/84
[2018-08-23] MEDS: CITALOPRAM 20 MG TABLET PO SCH (08:44)
[2018-08-23] MEDS: LOSARTAN 50MG TABLET PO SCH (08:44)
[2018-08-23] MEDS ORDERED: GABA-826 PO (11:24)
[2018-08-23] MEDS ORDERED: LOSA50TA2 PO (11:24)
[2018-08-23] MEDS ORDERED: NITR0.4T28 SL (11:24)
[2018-08-23] MEDS ORDERED: CITA20TA9 PO (11:24)
[2018-08-23] MEDS ORDERED: ASPI-650 PO (11:24)
[2018-08-23] MEDS ORDERED: METO25TA35 PO (11:24)
[2018-08-23] MEDS ORDERED: ATOR40TA78 PO (11:24)
[2018-08-23 13:39] VITALS: BP 131/85
== END 2018-08-23 14:16 | disposition home or self-care (01) ==
LOC: ED 01:04 → EDIP 02:18 → INTOOBSV 02:18 → 5SO 02:58
PROVIDERS: ADMIT Internal Medicine; ATTEND Internal Medicine
DX: R07.89 Other chest pain (principal); I25.110 Atherosclerotic heart disease of native coronary artery with unstable angina pectoris; I10 Essential (primary) hypertension; I25.5 Ischemic cardiomyopathy; E78.5 Hyperlipidemia, unspecified; E44.0 Moderate protein-calorie malnutrition; D72.829 Elevated white blood cell count, unspecified; Z82.49 Family history of ischemic heart disease and other diseases of the circulatory system; Z83.3 Family history of diabetes mellitus; Z95.5 Presence of coronary angioplasty implant and graft; Z79.82 Long term (current) use of aspirin
CPT/HCPCS: 36415; 71045; 73630; 78452; 80053; 80061; 81003; 82728; 83036; 83540; 83550; 84439; 84443; 84466; 84484; 85025; 85610; 85730; 93005; 93017; 96372; 96374; 99285; A9502; C9898; G0378; J1644; J2785; J7030

== ENCOUNTER 2018-09-20 13:30 | Emergency (ER) | payer MEDICAID ==
[~2018-09-20] VITALS: Ht 172.7 cm; Wt 60.9 kg
[~2018-09-20 13:30] MED LIST changes: +ASPI-650 PO; +ATOR40TA78 PO; +CITA20TA9 PO; +ESCI10TA10 PO; +GABA-826 PO; +LISI-167 PO; +LOSA50TA2 PO; +NITR0.4T28 SL
[2018-09-20 14:29] LABS: MEAN CORPUSCULAR HEMOGLOBIN 25.8 pg (27.5-34.5); MEAN CORPUSCULAR HGB CONC 32.8 g/dL (33.2-36.2); MEAN CORPUSCULAR VOLUME 78.5 fL (81-97); MEAN PLATELET VOLUME 7.3 fL (7.4-10.4); PLATELET COUNT 864 x10^3/uL (130-400); RED CELL DISTRIBUTION WIDTH 17.6 % (9.4-14.8)
[2018-09-20] MEDS ORDERED: SODIUM CHLORIDE FLUSH 10ML SYR IVF ONE (14:30)
[2018-09-20 14:38] LABS: ALANINE AMINOTRANSFERASE 33 U/L (12-78); ALBUMIN 3.6 g/dL (3.4-5.0); ANION GAP 8 mmol/L (5-15); CALCIUM 8.4 mg/dL (8.5-10.1); CHLORIDE 108 mmol/L (98-107); CREATININE 1.15 mg/dL (0.7-1.3)
[2018-09-20 14:42] LABS: ALKALINE PHOSPHATASE 55 U/L (45-117); BILIRUBIN,TOTAL 0.7 mg/dL (0.2-1.0); TOTAL PROTEIN 6.9 g/dL (6.4-8.2); TROPONIN I < 0.015 ng/mL (0.000-0.045)
[2018-09-20] MEDS ORDERED: CEFTRIAXONE PMX 1GM/50ML 50 ML ONE (14:48)
[2018-09-20 14:49] LABS: MD YES
[2018-09-20 14:51] LABS: ANISOCYTOSIS 1+; BANDS%(MANUAL) 1 % (0-7); HYPOCHROMIA 1+; LYMPH#(MANUAL) 1.22 x10^3/uL (1-3.4); LYMPHS% (MANUAL) 6 % (22-44); MICROCYTOSIS 1+; MONOS#(MANUAL) 0.81 x10^3/uL (0.3-2.7); MONOS% (MANUAL) 4 % (2-9); SEG#(MANUAL) 18.07 x10^3/uL (1.8-6.8); SEGS% (MANUAL) 89 % (42-75)
[2018-09-20 14:52] LABS: <PLATELET ESTIMATE> INCREASED; LARGE PLATELETS 1+
[2018-09-20] MEDS ORDERED: AZITHROMYCIN 500 MG in SODIUM CHLORIDE 0.9% 250 ML IVPB ONE (15:00)
[2018-09-20] MEDS ORDERED: CEFTRIAXONE PMX 1GM/50ML 50 ML IVPB ONE (15:00)
[2018-09-20] MEDS ORDERED: OMNIPAQUE 350 MG/ML, 100ML BOTTLE ONE (15:52)
[2018-09-20] MEDS ORDERED: KETOROLAC 30 MG/1 ML ONE (16:41)
[2018-09-20 17:00] LABS: MICROSCOPIC NOT IND
[2018-09-20] MEDS ORDERED: KETOROLAC 30 MG/1 ML IVPush ONE (17:00)
[2018-09-20 17:14] VITALS: BP 127/91
[2018-09-20 17:17] LABS: CULTURE INDICATED? NO
== END 2018-09-20 18:04 | disposition home or self-care (01) ==
LOC: ED 14:11
DX: S22.050A Wedge compression fracture of T5-T6 vertebra, initial encounter for closed fracture (principal); R07.89 Other chest pain; E78.5 Hyperlipidemia, unspecified; I25.2 Old myocardial infarction; I10 Essential (primary) hypertension; I25.10 Atherosclerotic heart disease of native coronary artery without angina pectoris; X58.XXXA Exposure to other specified factors, initial encounter; Y93.89 Activity, other specified; Y99.8 Other external cause status; Y92.89 Other specified places as the place of occurrence of the external cause
CPT/HCPCS: 36415; 71275; 80053; 81003; 83605; 84145; 84484; 85025; 87040; 93005; 96365; 96368; 96375; 99285; J0456; J0696; J1885; J7050; Q9967

== ENCOUNTER 2018-10-12 21:07 | Emergency (ER) | payer MEDICAID, OTHER ==
[~2018-10-12] VITALS: Ht 172.7 cm; Wt 62.0 kg
[2018-10-12 21:09] VITALS: BP 162/94
[2018-10-12] MEDS ORDERED: ACETAMINOPHEN 500 MG TABLET PO ONE (22:00)
[2018-10-12] MEDS ORDERED: METHOCARBAMOL 750 MG TABLET PO ONE (22:00)
[2018-10-12] MEDS ORDERED: METHOCARBAMOL 750 MG TABLET ONE (22:02)
[2018-10-12] MEDS ORDERED: ACETAMINOPHEN 500 MG TABLET ONE (22:02)
== END 2018-10-12 23:16 | disposition home or self-care (01) ==
LOC: ED 23:15
DX: R51 Headache (principal); M54.6 Pain in thoracic spine; R09.81 Nasal congestion; E78.5 Hyperlipidemia, unspecified; I25.10 Atherosclerotic heart disease of native coronary artery without angina pectoris; I25.2 Old myocardial infarction; I10 Essential (primary) hypertension; Z95.5 Presence of coronary angioplasty implant and graft
CPT/HCPCS: 99283

== ENCOUNTER 2018-11-03 21:54 | Emergency (ER) | payer OTHER ==
[~2018-11-03] VITALS: Ht 172.7 cm; Wt 61.9 kg
[~2018-11-03 21:54] MED LIST changes: -ASPI-621 PO; +ASPI81TA45 PO; +ATOR20TA37 PO; -ATOR20TA9 PO
[2018-11-03 21:58] VITALS: BP 123/80
== END 2018-11-03 23:16 | disposition home or self-care (01) ==
LOC: ED 22:26
DX: S90.32XA Contusion of left foot, initial encounter (principal); W20.8XXA Other cause of strike by thrown, projected or falling object, initial encounter; Y93.89 Activity, other specified; Y92.009 Unspecified place in unspecified non-institutional (private) residence as the place of occurrence of the external cause; Y99.8 Other external cause status
CPT/HCPCS: 99283

== ENCOUNTER 2018-12-09 21:13 | Emergency (ER) | payer OTHER ==
[~2018-12-09] VITALS: Ht 172.7 cm; Wt 63.2 kg
[2018-12-09] MEDS ORDERED: ASPIRIN 81 MG TABLET CHEW PO ONE (22:00)
[2018-12-09 22:48] LABS: BASOPHILS # (AUTO) 0.02 x10^3/uL (0-0.1); BASOPHILS % (AUTO) 0 % (0-1); EOSINOPHILS # (AUTO) 0.46 x10^3/uL (0-0.4); EOSINOPHILS % (AUTO) 4 % (1-7); LYMPHOCYTES # (AUTO) 1.04 x10^3/uL (1-3.4); LYMPHOCYTES % (AUTO) 9 % (22-44); MD NO; MEAN CORPUSCULAR HEMOGLOBIN 25.9 pg (27.5-34.5); MEAN CORPUSCULAR HGB CONC 32.9 g/dL (33.2-36.2); MEAN CORPUSCULAR VOLUME 78.6 fL (81-97); MEAN PLATELET VOLUME 7.6 fL (7.4-10.4); MONOCYTES # (AUTO) 0.25 x10^3/uL (0.2-0.8); MONOCYTES % (AUTO) 2 % (2-9); NEUTROPHILS # (AUTO) 10.44 x10^3/uL (1.8-6.8); NEUTROPHILS % (AUTO) 86 % (42-75); PLATELET COUNT 692 x10^3/uL (130-400); RED BLOOD COUNT 6.94 x10^6/uL (4.38-5.82); RED CELL DISTRIBUTION WIDTH 17.3 % (9.4-14.8)
[2018-12-09 23:00] LABS: ALANINE AMINOTRANSFERASE 22 U/L (12-78); ALBUMIN 3.7 g/dL (3.4-5.0); ANION GAP 6 mmol/L (5-15); CALCIUM 8.7 mg/dL (8.5-10.1); CHLORIDE 106 mmol/L (98-107); CREATININE 1.29 mg/dL (0.7-1.3)
[2018-12-09 23:05] LABS: ALKALINE PHOSPHATASE 55 U/L (45-117); BILIRUBIN,TOTAL 0.8 mg/dL (0.2-1.0); TROPONIN I < 0.015 ng/mL (0.000-0.045)
--- NOTE | 2018-12-10 00:13 | NUR ---
PT TO ROOM FROM LOBBY AT THIS TIME. PT PLACED ON ALL MONITORS.
[2018-12-10] MEDS ORDERED: KETOROLAC 60 MG/2 ML IM ONE (00:30)
[2018-12-10] MEDS ORDERED: ASPIRIN 81 MG TABLET EC ONE (00:54)
[2018-12-10] MEDS ORDERED: KETOROLAC 30 MG/1 ML ONE (00:55)
[2018-12-10] MEDS ORDERED: ASPIRIN 81 MG TABLET CHEW ONE (01:01)
--- NOTE | 2018-12-10 01:03 | NUR ---
REPORT RECEIVED AND CARE ASSUMED. PT RESTING WITH C/O OF 5/10 CP. PT MEDICATED PER JAN. VSS. NSR ON MONITOR. NO FURTHER NEEDS EXPRESSED. CALL LIGHT IN REACH. AWAITING REPEAT TROP.
[2018-12-10 01:07] LABS: TROPONIN I < 0.015 ng/mL (0.000-0.045)
[2018-12-10] MEDS ORDERED: ONDANSETRON ODT 4 MG ONE (01:15)
[2018-12-10] MEDS ORDERED: ONDANSETRON ODT 4 MG PO ONE (01:30)
[2018-12-10 02:20] VITALS: BP 115/72
== END 2018-12-10 02:23 | disposition home or self-care (01) ==
LOC: ED 12-10 00:24
DX: R07.89 Other chest pain (principal); I25.2 Old myocardial infarction; Z95.5 Presence of coronary angioplasty implant and graft
CPT/HCPCS: 36415; 71046; 80053; 83880; 84484; 85025; 93005; 96372; 99284; J1885; Q0162

== ENCOUNTER 2018-12-23 03:34 | Emergency (ER) | payer OTHER ==
[~2018-12-23] VITALS: Ht 172.7 cm; Wt 61.5 kg
--- NOTE | 2018-12-23 03:41 | NUR ---
PT AMBULATED TO ROOM FROM TRIAGE WITH STEADY GAIT.
--- NOTE | 2018-12-23 03:47 | NUR ---
PT REPORTS HE WAS AT WORK TONIGHT WHEN "I STARTED TO FEEL LIKE SHIT." PT STATES N/V AND "BURNING" TO HIS FEET. PT REPORTS BURNING SO PAINFUL IT "HURTS TO WALK." PT REPORTS NAUSEA AT THIS TIME. PT DENIES BEING AROUND ANY OTHER KNOWN SICK PERSON. PT DENIES WEAKNESS. PT A/OX4, BREATHING E/U. PT SITTING IN BED, WARM BLANKET PROVIDED. NO DISTRESS NOTED. AWAITING MD HARDEN.
--- NOTE | 2018-12-23 04:32 | NUR ---
PROVIDER TO BEDSIDE FOR PT EVAL.
--- NOTE | 2018-12-23 04:57 | NUR ---
LAB TO BEDSIDE FOR BLOOD DRAW.
--- NOTE | 2018-12-23 05:07 | NUR ---
BLOOD DRAWN BY LAB. PT RESTING IN BED, DENIES NEEDS. STATES FEET STILL BURNING. NO DISTRESS NOTED.
[2018-12-23 05:11] LABS: BASOPHILS # (AUTO) 0.05 x10^3/uL (0-0.1); BASOPHILS % (AUTO) 0 % (0-1); EOSINOPHILS # (AUTO) 0.28 x10^3/uL (0-0.4); EOSINOPHILS % (AUTO) 2 % (1-7); LYMPHOCYTES # (AUTO) 1.48 x10^3/uL (1-3.4); LYMPHOCYTES % (AUTO) 12 % (22-44); MD NO; MEAN CORPUSCULAR HEMOGLOBIN 26.2 pg (27.5-34.5); MEAN CORPUSCULAR HGB CONC 33.2 g/dL (33.2-36.2); MEAN CORPUSCULAR VOLUME 78.8 fL (81-97); MEAN PLATELET VOLUME 7.8 fL (7.4-10.4); MONOCYTES # (AUTO) 0.52 x10^3/uL (0.2-0.8); MONOCYTES % (AUTO) 4 % (2-9); NEUTROPHILS # (AUTO) 9.89 x10^3/uL (1.8-6.8); NEUTROPHILS % (AUTO) 81 % (42-75); PLATELET COUNT 726 x10^3/uL (130-400); RED BLOOD COUNT 6.79 x10^6/uL (4.38-5.82)
[2018-12-23 05:22] LABS: ALBUMIN 3.9 g/dL (3.4-5.0); ANION GAP 6 mmol/L (5-15); CALCIUM 9.4 mg/dL (8.5-10.1); CHLORIDE 105 mmol/L (98-107)
--- NOTE | 2018-12-23 05:23 | NUR ---
MD TO BEDSIDE FOR EVAL.
[2018-12-23 05:27] LABS: ALANINE AMINOTRANSFERASE 23 U/L (12-78); ALKALINE PHOSPHATASE 47 U/L (45-117); BILIRUBIN,TOTAL 0.6 mg/dL (0.2-1.0); CREATININE 1.17 mg/dL (0.7-1.3); TOTAL PROTEIN 7.1 g/dL (6.4-8.2)
--- NOTE | 2018-12-23 05:37 | NUR ---
LABS RESULTED. PT PLACED FOR PROVIDER RECHECK.
[2018-12-23] MEDS ORDERED: ONDANSETRON 2MG/ML, 2ML ONE (05:43)
[2018-12-23] MEDS ORDERED: MORPHINE SULFATE 4 MG/ML, 1ML ONE (05:44)
--- NOTE | 2018-12-23 05:59 | NUR ---
IV PLACED, MEDS GIVEN PER ORDERS, SEE EMAR. PT TO CT.
[2018-12-23] MEDS ORDERED: ONDANSETRON 2MG/ML, 2ML IVPush ONE (06:00)
[2018-12-23] MEDS ORDERED: SODIUM CHLORIDE 0.9% 1,000ML IVBOLUS ONE (06:00)
[2018-12-23] MEDS ORDERED: SODIUM CHLORIDE FLUSH 10ML SYR IVF ONE (06:00)
[2018-12-23] MEDS ORDERED: MORPHINE SULFATE 4 MG/ML, 1ML IVPush PRN (06:00)
--- NOTE | 2018-12-23 06:05 | NUR ---
PT RETURN FROM CT.
[2018-12-23] MEDS ORDERED: OMNIPAQUE 350 MG/ML, 100ML BOTTLE ONE (06:12)
--- NOTE | 2018-12-23 06:30 | NUR ---
PT RESTING IN BED, VSS. PT DENIES NEEDS AT THIS TIME. REPORTS PAIN AND NAUSEA IMPROVING. WILL MONITOR.
--- NOTE | 2018-12-23 06:43 | NUR ---
PER SPO2 MONITOR HR IN 40'S, MANUAL RADIAL PULSE NOTED TO BE IN THE 70'S, PT PLACED ON HEART MONITOR, HR IN 70'S. WILL MONITOR.
--- NOTE | 2018-12-23 06:48 | NUR ---
REPORT TO ABRIL RAMIREZ.
[2018-12-23 07:12] VITALS: BP 140/80
--- NOTE | 2018-12-23 07:12 | NUR ---
Pt resting in bed, denies needs, states he is ready to go home.
== END 2018-12-23 07:29 | disposition home or self-care (01) ==
LOC: ED 03:57
DX: K85.00 Idiopathic acute pancreatitis without necrosis or infection (principal); M72.2 Plantar fascial fibromatosis; K52.9 Noninfective gastroenteritis and colitis, unspecified; E78.5 Hyperlipidemia, unspecified; I25.2 Old myocardial infarction; I10 Essential (primary) hypertension; I25.10 Atherosclerotic heart disease of native coronary artery without angina pectoris; Z95.5 Presence of coronary angioplasty implant and graft
CPT/HCPCS: 36415; 74177; 80053; 80307; 83690; 85025; 96361; 96374; 96375; 99284; J2405; J7030; Q9967

== ENCOUNTER 2019-03-26 12:50 | Inpatient (IN) | payer MEDICAID, OTHER ==
[~2019-03-26] VITALS: Ht 172.7 cm; Wt 60.5 kg
--- NOTE | 2019-03-26 13:19 | NUR ---
PT PLACED ON HEART MONITOR, BP CUFF, PULSE OX. NEURO EXAM WNL WITH EXCEPTION OF PT STILL BEING CONFUSED TO SITUATION AND UNABLE TO GIVE RELIABLE MED HX. PT DENIES RECENT INJURY OR ILLNESS. URINAL PROVIDED, CALL LIGHT WITHIN REACH. PT AWARE OF NEED FOR UA.
[2019-03-26] MEDS ORDERED: SODIUM CHLORIDE FLUSH 10ML SYR IVF ONE (13:30)
[2019-03-26 13:51] LABS: BASOPHILS # (AUTO) 0.05 x10^3/uL (0-0.1); BASOPHILS % (AUTO) 0 % (0-1); EOSINOPHILS # (AUTO) 0.27 x10^3/uL (0-0.4); EOSINOPHILS % (AUTO) 2 % (1-7); LYMPHOCYTES # (AUTO) 1.25 x10^3/uL (1-3.4); LYMPHOCYTES % (AUTO) 10 % (22-44); MD NO; MEAN CORPUSCULAR HEMOGLOBIN 26.3 pg (27.5-34.5); MEAN CORPUSCULAR VOLUME 79.8 fL (81-97); MEAN PLATELET VOLUME 8.1 fL (7.4-10.4); MONOCYTES # (AUTO) 0.47 x10^3/uL (0.2-0.8); MONOCYTES % (AUTO) 4 % (2-9); NEUTROPHILS # (AUTO) 10.31 x10^3/uL (1.8-6.8); NEUTROPHILS % (AUTO) 84 % (42-75); PLATELET COUNT 643 x10^3/uL (130-400); RED BLOOD COUNT 6.82 x10^6/uL (4.38-5.82); RED CELL DISTRIBUTION WIDTH 19.1 % (9.4-14.8)
[2019-03-26 14:05] LABS: ALANINE AMINOTRANSFERASE 29 U/L (12-78); ALBUMIN 3.7 g/dL (3.4-5.0); ANION GAP 9 mmol/L (5-15); CALCIUM 9.1 mg/dL (8.5-10.1); CHLORIDE 105 mmol/L (98-107); CREATININE 1.26 mg/dL (0.7-1.3)
[2019-03-26 14:06] LABS: SALICYLATE LEVEL < 1.7 mg/dL (2.8-20.0)
[2019-03-26 14:07] LABS: ALKALINE PHOSPHATASE 55 U/L (45-117); BILIRUBIN,TOTAL 0.6 mg/dL (0.2-1.0); TOTAL PROTEIN 7.1 g/dL (6.4-8.2); TROPONIN I < 0.015 ng/mL (0.000-0.045)
[2019-03-26 14:16] LABS: ACETAMINOPHEN < 2 mcg/mL (10-30)
--- NOTE | 2019-03-26 14:27 | NUR ---
URINE COLLECTED/SENT TO LAB. PT A/O X 3 AT THIS TIME. STATES HE CALLED ROOMMATE AND ASKED HOW HE GOT HERE. PT STILL AMNESIC TO EVENT, DOES NOT REMEMBER AMBULANCE. CALL LIGHT WITHIN REACH.
[2019-03-26 14:47] LABS: MICROSCOPIC NOT IND
[2019-03-26 14:48] LABS: AMPHETAMINE SCREEN, URINE Negative (Negative); BARBITURATE SCREEN, URINE Negative (Negative); BENZODIAZEPINE SCREEN, URINE Negative (Negative); CANNABINOID SCREEN, URINE Negative (Negative); COCAINE SCREEN, URINE Negative (Negative); METHADONE SCREEN, URINE Negative (Negative); OPIATE SCREEN, URINE Negative (Negative)
[2019-03-26 14:53] LABS: CULTURE INDICATED? NO
--- NOTE | 2019-03-26 15:00 | NUR ---
ALL RESULTS BACK, PT FOR RECHECK.
--- NOTE | 2019-03-26 16:46 | NUR ---
DISPO CHANGED TO ADMISSION. MED REC UPDATED. ROOMMATE AT BS. CALL LIGHT WITHIN REACH.
--- NOTE | 2019-03-26 17:08 | NUR ---
PT BACK FROM CT, NAD.
--- NOTE | 2019-03-26 17:40 | NUR ---
REPORT TO ITZEL RAMIREZ, PT READY FOR TRANSPORT TO FLOOR.
[2019-03-26 20:16] VITALS: BP 140/93
[2019-03-26] MEDS ORDERED: ACETAMINOPHEN 325 MG TABLET PO PRN (20:30)
[2019-03-26] MEDS: SODIUM CHLORIDE 0.9% 1,000 ML IV SCH (21:53)
[2019-03-27] VITALS (8 sets, daily range): BP systolic 116–138; BP diastolic 71–85
[2019-03-27] MEDS: ASPIRIN 325 MG TABLET EC PO SCH (05:18)
[2019-03-27] MEDS: METOPROLOL TARTRATE 25 MG TABLET PO SCH ×2 (05:18→18:18)
[2019-03-27 06:15] LABS: CHLORIDE 110 mmol/L (98-107)
[2019-03-27 06:34] LABS: ANION GAP 5 mmol/L (5-15); CALCIUM 8.6 mg/dL (8.5-10.1); CHOL/HDL RATIO 3.5; CHOLESTEROL, TOTAL 152 mg/dL (140-239); CREATININE 1.13 mg/dL (0.7-1.3); HDL CHOL % 29 % (26-37); HDL CHOLESTEROL (DIRECT) 44 mg/dL (40-60); LDL CHOLESTEROL,CALCULATED 80 mg/dL (54-169); LDL/HDL RATIO 1.8 (0.5-3.0); TRIGLYCERIDES 138 mg/dL (50-200); TROPONIN I < 0.015 ng/mL (0.000-0.045); VLDL CHOLESTEROL 28 mg/dL (0-25)
[2019-03-27 07:18] LABS: BASOPHILS # (AUTO) 0.04 x10^3/uL (0-0.1); BASOPHILS % (AUTO) 0 % (0-1); EOSINOPHILS # (AUTO) 0.37 x10^3/uL (0-0.4); EOSINOPHILS % (AUTO) 3 % (1-7); LYMPHOCYTES # (AUTO) 1.63 x10^3/uL (1-3.4); LYMPHOCYTES % (AUTO) 14 % (22-44); MD NO; MEAN CORPUSCULAR HEMOGLOBIN 26.2 pg (27.5-34.5); MEAN CORPUSCULAR HGB CONC 32.5 g/dL (33.2-36.2); MEAN CORPUSCULAR VOLUME 80.7 fL (81-97); MEAN PLATELET VOLUME 8.1 fL (7.4-10.4); MONOCYTES % (AUTO) 4 % (2-9); NEUTROPHILS # (AUTO) 9.36 x10^3/uL (1.8-6.8); NEUTROPHILS % (AUTO) 79 % (42-75); PLATELET COUNT 478 x10^3/uL (130-400); RED CELL DISTRIBUTION WIDTH 19.1 % (9.4-14.8)
[2019-03-27] MEDS: LOSARTAN 50MG TABLET PO SCH (08:43)
[2019-03-27] MEDS: SODIUM CHLORIDE 0.9% 1,000 ML IV SCH ×2 (08:43→18:18)
[2019-03-27] MEDS ORDERED: ATORVASTATIN 40 MG TABLET PO SCH (21:00)
[2019-03-28 02:27] VITALS: BP 135/80
[2019-03-28] MEDS: SODIUM CHLORIDE 0.9% 1,000 ML IV SCH (03:45)
[2019-03-28] MEDS: METOPROLOL TARTRATE 25 MG TABLET PO SCH (06:04)
[2019-03-28] MEDS: ASPIRIN 325 MG TABLET EC PO SCH (06:04)
[2019-03-28 07:00] VITALS: BP 129/80
[2019-03-28 08:05] VITALS: BP 131/84
[2019-03-28 08:08] VITALS: BP 137/91
[2019-03-28 08:09] VITALS: BP 136/83
[2019-03-28] MEDS: LOSARTAN 50MG TABLET PO SCH (08:28)
== END 2019-03-28 11:25 | disposition home or self-care (01) | DRG 74 ==
LOC: ED 15:08 → EDIP 16:33 → 4EST 17:59
PROVIDERS: ADMIT Internal Medicine; ATTEND Internal Medicine
DX: G90.8 Other disorders of autonomic nervous system (principal); I10 Essential (primary) hypertension; E78.5 Hyperlipidemia, unspecified; I25.10 Atherosclerotic heart disease of native coronary artery without angina pectoris; I25.5 Ischemic cardiomyopathy; I45.10 Unspecified right bundle-branch block; R07.89 Other chest pain; Z79.82 Long term (current) use of aspirin; Z91.19 Patient's noncompliance with other medical treatment and regimen; I25.2 Old myocardial infarction; Z91.14 Patient's other noncompliance with medication regimen; Z95.5 Presence of coronary angioplasty implant and graft
CPT/HCPCS: 36415; 70450; 71045; 80048; 80053; 80061; 80307; 80329; 81003; 84443; 84484; 85025; 87040; 93005; 93306; 93880; G0378; G0480; J7030

== ENCOUNTER 2019-05-09 03:22 | Inpatient (IN) | payer MEDICAID, OTHER ==
[~2019-05-09] VITALS: Ht 172.7 cm; Wt 59.2 kg
[2019-05-09] MEDS ORDERED: BLOOD THINNER (03:30)
--- NOTE | 2019-05-09 03:46 | NUR ---
provider at bedside to eval.
[2019-05-09] MEDS ORDERED: NITROGLYCERIN SINGLE TAB 0.4 MG SL ONE (03:56)
[2019-05-09] MEDS ORDERED: ASPIRIN 81 MG TABLET CHEW ONE (03:56)
[2019-05-09] MEDS ORDERED: ASPIRIN 81 MG TABLET CHEW PO ONE (04:00)
[2019-05-09] MEDS: NITROGLYCERIN SINGLE TAB 0.4 MG SL PRN ×3 (04:02→04:28)
[2019-05-09 04:05] LABS: BASOPHILS # (AUTO) 0.04 x10^3/uL (0-0.1); BASOPHILS % (AUTO) 0 % (0-1); EOSINOPHILS # (AUTO) 0.46 x10^3/uL (0-0.4); EOSINOPHILS % (AUTO) 5 % (1-7); LYMPHOCYTES # (AUTO) 1.81 x10^3/uL (1-3.4); LYMPHOCYTES % (AUTO) 18 % (22-44); MD NO; MEAN CORPUSCULAR HEMOGLOBIN 27.5 pg (27.5-34.5); MEAN CORPUSCULAR HGB CONC 32.6 g/dL (33.2-36.2); MEAN CORPUSCULAR VOLUME 84.4 fL (81-97); MEAN PLATELET VOLUME 8.7 fL (7.4-10.4); MONOCYTES # (AUTO) 0.33 x10^3/uL (0.2-0.8); MONOCYTES % (AUTO) 3 % (2-9); NEUTROPHILS # (AUTO) 7.67 x10^3/uL (1.8-6.8); NEUTROPHILS % (AUTO) 74 % (42-75); PLATELET COUNT 585 x10^3/uL (130-400); RED BLOOD COUNT 6.52 x10^6/uL (4.38-5.82)
--- NOTE | 2019-05-09 04:05 | NUR ---
PT MEDICATED PER JAN FOR 06/10 STERNAL CP. VSS. PT ON MONITOR WITH BE AND L BBB. CALL LIGHT IN REACH.
--- NOTE | 2019-05-09 04:15 | NUR ---
PT STATES NO RELIEF AFTER NITRO. REPEAT DOSE GIVEN. NO ACUTE CHANGES NOTED.
[2019-05-09 04:17] LABS: ALBUMIN 3.8 g/dL (3.4-5.0); ANION GAP 5 mmol/L (5-15); CALCIUM 8.9 mg/dL (8.5-10.1); CHLORIDE 106 mmol/L (98-107)
[2019-05-09 04:18] LABS: INTERNATIONAL NORMALIZED RATIO 1.02 (0.93-1.1); PROTHROMBIN TIME 10.7 Seconds (9.6-11.5)
[2019-05-09 04:23] LABS: ALANINE AMINOTRANSFERASE 33 U/L (12-78); ALKALINE PHOSPHATASE 53 U/L (45-117); BILIRUBIN,TOTAL 0.8 mg/dL (0.2-1.0); CREATININE 1.15 mg/dL (0.7-1.3); TROPONIN I < 0.015 ng/mL (0.000-0.045)
--- NOTE | 2019-05-09 04:23 | NUR ---
STILL NO RELIEF AFTER 2 DOSES OF NITRO. REMAINS 06/10. ERP AT BEDSIDE TO EVAL.
--- NOTE | 2019-05-09 04:39 | NUR ---
NO RELIEF AFTER 3RD DOSE. NO ACUTE CHANGES NOTED ON MONITOR. VSS. CALL LIGHT IN REACH.
[2019-05-09] MEDS ORDERED: HYDROcodone/APAP 5/325 TABLET ONE (04:54)
--- NOTE | 2019-05-09 04:56 | NUR ---
PT MEDICATED PER JAN FOR CONTINUED PAIN. PT TO BE ADMITTED TO HOSPITAL. PT AWARE OF POC. CALL LIGHT IN REACH. REPORT TO RAMSES RAMIREZ.
[2019-05-09] MEDS ORDERED: HYDROcodone/APAP 5/325 TABLET PO ONE (05:00)
--- NOTE | 2019-05-09 05:03 | NUR ---
received report from JAMES Johnson. patient waiting admission orders.
[2019-05-09] MEDS ORDERED: ONDANSETRON 2MG/ML, 2ML IVPush PRN (05:30)
[2019-05-09] MEDS ORDERED: KETOROLAC 30 MG/1 ML IV PRN (05:30)
[2019-05-09] MEDS ORDERED: morphine SULFATE 10 MG/ML, 1ML IVPush PRN (05:30)
[2019-05-09] MEDS ORDERED: ACETAMINOPHEN 325 MG TABLET PO PRN (05:30)
[2019-05-09 05:53] VITALS: BP 112/71
[2019-05-09] MEDS: ASPIRIN 325 MG TABLET EC PO SCH (06:00)
[2019-05-09] MEDS: GABAPENTIN 100 MG CAPSULE PO SCH ×4 (06:32→20:24)
[2019-05-09] MEDS: ENOXAPARIN 40 MG/0.4 ML SQ SCH (06:32)
[2019-05-09 06:41] LABS: THYROID STIMULATING HORMONE 2.25 mIU/L (0.358-3.740)
[2019-05-09] MEDS ORDERED: LOSA50TA14 PO (07:19)
[2019-05-09] MEDS ORDERED: METO25TA35 PO (07:19)
[2019-05-09] MEDS ORDERED: CITA20TA9 PO (07:19)
[2019-05-09 08:16] VITALS: BP 106/70
[2019-05-09] MEDS: CLOPIDOGREL 75 MG TABLET PO SCH (08:45)
[2019-05-09 09:19] LABS: TROPONIN I < 0.015 ng/mL (0.000-0.045)
[2019-05-09 13:42] VITALS: BP 108/72
[2019-05-09 15:45] LABS: TROPONIN I < 0.015 ng/mL (0.000-0.045)
[2019-05-09 20:00] VITALS: BP 125/79
[2019-05-09] MEDS ORDERED: ATORVASTATIN 40 MG TABLET PO SCH (21:00)
[2019-05-10 05:08] VITALS: BP 118/61
[2019-05-10] MEDS: ENOXAPARIN 40 MG/0.4 ML SQ SCH (05:11)
[2019-05-10] MEDS: ASPIRIN 325 MG TABLET EC PO SCH (05:12)
[2019-05-10 09:26] VITALS: BP 113/68
[2019-05-10] MEDS ORDERED: LOSARTAN 50MG TABLET PO SCH (09:30)
[2019-05-10] MEDS ORDERED: CITALOPRAM 20 MG TABLET PO SCH (09:30)
[2019-05-10] MEDS ORDERED: METOPROLOL TARTRATE 25 MG TABLET PO SCH (09:30)
[2019-05-10] MEDS: GABAPENTIN 100 MG CAPSULE PO SCH (09:34)
[2019-05-10] MEDS: CLOPIDOGREL 75 MG TABLET PO SCH (09:34)
[2019-05-10 10:55] VITALS: BP 104/65
[2019-05-10] MEDS ORDERED: METO25TA35 PO (12:40)
[2019-05-10] MEDS ORDERED: LOSA50TA14 PO (12:40)
[2019-05-10] MEDS ORDERED: ATOR40TA78 PO (12:40)
[2019-05-10] MEDS ORDERED: CITA20TA9 PO (12:40)
[2019-05-10] MEDS ORDERED: ASPI-650 PO ×2 (12:40)
[2019-05-10] MEDS ORDERED: NITR0.4T28 SL (12:40)
[2019-05-10] MEDS ORDERED: GABA-826 PO (12:40)
[2019-05-10] MEDS ORDERED: CLOP75TA PO (12:40)
[2019-05-10] MEDS ORDERED: ASPI81TA45 PO (13:21)
[2019-05-10 14:33] VITALS: BP 99/60
== END 2019-05-10 15:11 | disposition home or self-care (01) | DRG 313 ==
LOC: ED 03:35 → EDIP 04:43 → 5SO 05:48
PROVIDERS: ADMIT Family Medicine; ATTEND Family Medicine
DX: R07.89 Other chest pain (principal); E44.1 Mild protein-calorie malnutrition; Z68.1 Body mass index [BMI] 19.9 or less, adult; I25.2 Old myocardial infarction; I25.10 Atherosclerotic heart disease of native coronary artery without angina pectoris; I10 Essential (primary) hypertension; E78.5 Hyperlipidemia, unspecified; I25.5 Ischemic cardiomyopathy; Z87.891 Personal history of nicotine dependence; Z95.5 Presence of coronary angioplasty implant and graft; Z83.3 Family history of diabetes mellitus; Z91.14 Patient's other noncompliance with medication regimen; Z82.49 Family history of ischemic heart disease and other diseases of the circulatory system; Z79.82 Long term (current) use of aspirin; Z90.49 Acquired absence of other specified parts of digestive tract; Z98.49 Cataract extraction status, unspecified eye; Z79.899 Other long term (current) drug therapy; Z88.8 Allergy status to other drugs, medicaments and biological substances
CPT/HCPCS: 36415; 71045; 80053; 82330; 83735; 83880; 84100; 84443; 84484; 85025; 85610; 85730; 93005; 99285; G0378; J1650; J2270

== ENCOUNTER 2019-08-10 17:51 | Emergency (ER) | payer OTHER ==
[~2019-08-10] VITALS: Ht 172.7 cm; Wt 64.0 kg
[~2019-08-10 17:51] MED LIST changes: +BLOOD THINNER; +LOSA50TA14 PO; +TOBR3.5O2 LEFTEYE
--- NOTE | 2019-08-10 18:08 | NUR ---
PT BIB [facility] TO ED AFTER T/C SEIZURE TODAY. PT WAS FOUND DURING SEIZURE WITH BLOOD ON HEAD AND FACE. 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 PER FAMILY AND EMS, PT WAS SEEN WELL APPROX 5 MINUTES BEFORE BEING FOUND. UNKNOWN LENGTH OF SEIZURE, BUT LESS THAN 5 MINUTES. PT NOT CURRENTLY PRESCRIBED MEDICATION FOR SZ ACTIVITY. PER EMS, PT WAS NOT INCONTINENT AND DID NOT BITE TONGUE. POST-ICTAL FOR APPROX 30 MINUTES. PT WAS A&OX2 UPON EMS ARRIVAL. UPON ARRIVAL TO [facility], PT IS A&OX4. PT DENIES PAIN, BUT C/O NON-RAD CHEST PRESSURE, EMS EKG UNREMARKABLE, NSR WITH BBB. EKG COMPLETED UPON ARRIVAL TO [facility]. PT CONNECTED TO ALL MONITORS. VSS. SEIZURE PADS IN PLACE. PT RESTING IN GURNEY. NO NEEDS EXPRESSED. AWAITING EDMD ASSESSMENT. PT STATES ONE PRIOR SEIZURE APPROX 1 YEAR AGO. RECENT HX OF FL WITH 1 STENT. NON COMPLIANT WITH PLAVIX, LAST TAKEN "A FEW WEEKS AGO."
--- NOTE | 2019-08-10 18:16 | NUR ---
PT RECENTLY HOSPITALIZED FOR HTN CRISIS. PT NONCOMPLIANT WITH MEDICATIONS.
--- NOTE | 2019-08-10 18:45 | NUR ---
Dr. Cervantes to bs for assessment. awaiting further orders.
--- NOTE | 2019-08-10 19:04 | NUR ---
pt's daughter at , stating that pt did not have a seizure. per pt's dtr (who did not witness the event), pt was knocked over by dog and hit head. dtr states pt was "out of it" for a little while, but "100% did not have a seizure." Dr. Cervantes aware of ems report.
[2019-08-10 19:30] LABS: BASOPHILS # (AUTO) 0.06 x10^3/uL (0-0.1); BASOPHILS % (AUTO) 1 % (0-1); EOSINOPHILS # (AUTO) 0.29 x10^3/uL (0-0.4); EOSINOPHILS % (AUTO) 2 % (1-7); LYMPHOCYTES # (AUTO) 0.97 x10^3/uL (1-3.4); LYMPHOCYTES % (AUTO) 7 % (22-44); MD NO; MEAN CORPUSCULAR HEMOGLOBIN 30.1 pg (27.5-34.5); MEAN CORPUSCULAR HGB CONC 33.3 g/dL (33.2-36.2); MEAN CORPUSCULAR VOLUME 90.4 fL (81-97); MEAN PLATELET VOLUME 7.7 fL (7.4-10.4); MONOCYTES % (AUTO) 2 % (2-9); NEUTROPHILS % (AUTO) 88 % (42-75); PLATELET COUNT 786 x10^3/uL (130-400); RED BLOOD COUNT 5.26 x10^6/uL (4.38-5.82); RED CELL DISTRIBUTION WIDTH 16.5 % (9.4-14.8)
[2019-08-10 19:42] LABS: ALANINE AMINOTRANSFERASE 30 U/L (12-78); ALBUMIN 3.8 g/dL (3.4-5.0); ANION GAP 5 mmol/L (5-15); CALCIUM 8.9 mg/dL (8.5-10.1); CHLORIDE 108 mmol/L (98-107); CREATININE 1.31 mg/dL (0.7-1.3)
[2019-08-10 19:47] LABS: ALKALINE PHOSPHATASE 53 U/L (45-117); BILIRUBIN,TOTAL 0.4 mg/dL (0.2-1.0); TOTAL PROTEIN 6.7 g/dL (6.4-8.2); TROPONIN I < 0.015 ng/mL (0.000-0.045)
[2019-08-10 19:51] VITALS: BP 128/87
--- NOTE | 2019-08-10 19:51 | NUR ---
PT RESTIGN IN ROOM WITH FAMILY AT BS. NO NEEDS EXPRESSED. AWAITING RESULTS.
== END 2019-08-10 21:09 | disposition home or self-care (01) ==
LOC: ED 21:00
DX: S06.0X0A Concussion without loss of consciousness, initial encounter (principal); I10 Essential (primary) hypertension; E78.5 Hyperlipidemia, unspecified; I25.10 Atherosclerotic heart disease of native coronary artery without angina pectoris; I25.2 Old myocardial infarction; W01.0XXA Fall on same level from slipping, tripping and stumbling without subsequent striking against object, initial encounter; Y93.89 Activity, other specified; Y92.89 Other specified places as the place of occurrence of the external cause; Y99.8 Other external cause status
CPT/HCPCS: 36415; 70450; 80053; 84484; 85025; 93005; 99284

== ENCOUNTER 2019-10-03 14:01 | Inpatient (IN) | payer OTHER ==
[~2019-10-03] VITALS: Ht 172.7 cm; Wt 59.2 kg
--- NOTE | 2019-10-03 14:01 | NUR ---
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
[2019-10-03 14:56] LABS: BASOPHILS # (AUTO) 0.03 x10^3/uL (0-0.1); BASOPHILS % (AUTO) 0 % (0-1); EOSINOPHILS # (AUTO) 0.27 x10^3/uL (0-0.4); EOSINOPHILS % (AUTO) 2 % (1-7); LYMPHOCYTES # (AUTO) 1.25 x10^3/uL (1-3.4); LYMPHOCYTES % (AUTO) 10 % (22-44); MD NO; MEAN CORPUSCULAR HEMOGLOBIN 29.5 pg (27.5-34.5); MEAN CORPUSCULAR HGB CONC 32.4 g/dL (33.2-36.2); MEAN CORPUSCULAR VOLUME 90.9 fL (81-97); MEAN PLATELET VOLUME 7.2 fL (7.4-10.4); MONOCYTES # (AUTO) 0.33 x10^3/uL (0.2-0.8); MONOCYTES % (AUTO) 3 % (2-9); NEUTROPHILS % (AUTO) 85 % (42-75); PLATELET COUNT 951 x10^3/uL (130-400)
[2019-10-03] MEDS ORDERED: SODIUM CHLORIDE FLUSH 10ML SYR IVF ONE (15:00)
--- NOTE | 2019-10-03 15:01 | NUR ---
PT AWAKE & COMFORTABLE, RESPONDS APPROP TO STAFF, NAD, COMFORT MEASURES PROVIDED, FAMILY AT BS, CALL LIGHT WITHIN REACH.
[2019-10-03 15:09] LABS: ALANINE AMINOTRANSFERASE 20 U/L (12-78); ALBUMIN 4.1 g/dL (3.4-5.0); ANION GAP 7 mmol/L (5-15); CALCIUM 8.6 mg/dL (8.5-10.1); CHLORIDE 107 mmol/L (98-107); CREATININE 1.31 mg/dL (0.7-1.3)
[2019-10-03 15:14] LABS: ALKALINE PHOSPHATASE 51 U/L (45-117); BILIRUBIN,TOTAL 0.5 mg/dL (0.2-1.0); TROPONIN I < 0.015 ng/mL (0.000-0.045)
--- NOTE | 2019-10-03 15:53 | NUR ---
PT RETURNED FROM CT
--- NOTE | 2019-10-03 16:05 | NUR ---
PT UPRIGHT ON GURNEY AWAKE & CALM, RESPONDS APPROP TO STAFF, NAD, COMFORT MEASURES PROVIDED, FAMILY AT BS, CALL LIGHT WITHIN REACH.
[2019-10-03 16:16] LABS: AMPHETAMINE SCREEN, URINE Negative (Negative); BARBITURATE SCREEN, URINE Negative (Negative); BENZODIAZEPINE SCREEN, URINE Negative (Negative); CANNABINOID SCREEN, URINE Negative (Negative); COCAINE SCREEN, URINE Negative (Negative); METHADONE SCREEN, URINE Negative (Negative); OPIATE SCREEN, URINE Negative (Negative)
--- NOTE | 2019-10-03 17:03 | NUR ---
PT REMAINS UPRIGHT ON GURNEY AWAKE & CALM, RESPONDS APPROP TO STAFF, NAD, COMFORT MEASURES PROVIDED, FAMILY AT BS, CALL LIGHT WITHIN REACH.
[2019-10-03] MEDS ORDERED: KETOROLAC 30 MG/1 ML ONE (17:20)
[2019-10-03] MEDS ORDERED: KETOROLAC 30 MG/1 ML IVPush ONE (17:30)
--- NOTE | 2019-10-03 18:02 | NUR ---
PT UPRIGHT ON GURNEY AWAKE &MORE COMFORTABLE, RESPONDS APPROP TO STAFF, NAD, COMFORT MEASURES PROVIDED, FAMILY AT BS, CALL LIGHT WITHIN REACH.
--- NOTE | 2019-10-03 18:23 | NUR ---
Pt to be admitted to [facility], room 521-2. Report called to Susie.
[2019-10-03 19:18] VITALS: BP 129/84
[2019-10-03] MEDS ORDERED: DOCUSATE 100 MG CAPSULE PO PRN (20:00)
[2019-10-03] MEDS ORDERED: HEPARIN 5,000 UNITS/ML, 1ML SQ SCH (20:00)
[2019-10-03] MEDS ORDERED: LIDODERM 5% PATCH TD PRN (20:00)
[2019-10-03] MEDS ORDERED: TEMAZEPAM 15 MG CAPSULE PO PRN (20:00)
[2019-10-03] MEDS ORDERED: ACETAMINOPHEN 325 MG TABLET PO PRN (20:00)
[2019-10-03] MEDS ORDERED: hydrALAzine 20 MG/ML, 1ML IVPush PRN (20:00)
[2019-10-03] MEDS ORDERED: ONDANSETRON ODT 4 MG PO PRN (20:00)
[2019-10-03 21:54] LABS: TROPONIN I 0.121 ng/mL (0.000-0.045)
[2019-10-03] MEDS ORDERED: HEPARIN 5,000 UNITS/ML, 1ML IV PRN (23:00)
[2019-10-03] MEDS ORDERED: HEPARIN 5,000 UNITS/ML, 1ML IV ONE (23:00)
[2019-10-03] MEDS ORDERED: HEPARIN 25,000 UNITS/500ML PMX 500 ML IV PRN (23:00)
[2019-10-04 00:03] LABS: RAPID INFLUENZA A Negative (Negative); RAPID INFLUENZA B Negative (Negative)
[2019-10-04 02:10] VITALS: BP 124/81
[2019-10-04 03:20] LABS: BASOPHILS # (AUTO) 0.02 x10^3/uL (0-0.1); BASOPHILS % (AUTO) 0 % (0-1); EOSINOPHILS # (AUTO) 0.44 x10^3/uL (0-0.4); EOSINOPHILS % (AUTO) 4 % (1-7); LYMPHOCYTES # (AUTO) 2.09 x10^3/uL (1-3.4); LYMPHOCYTES % (AUTO) 18 % (22-44); MD NO; MEAN CORPUSCULAR HEMOGLOBIN 30.1 pg (27.5-34.5); MEAN CORPUSCULAR HGB CONC 33.2 g/dL (33.2-36.2); MEAN CORPUSCULAR VOLUME 90.8 fL (81-97); MEAN PLATELET VOLUME 7.3 fL (7.4-10.4); MONOCYTES # (AUTO) 0.41 x10^3/uL (0.2-0.8); MONOCYTES % (AUTO) 4 % (2-9); NEUTROPHILS # (AUTO) 8.63 x10^3/uL (1.8-6.8); NEUTROPHILS % (AUTO) 75 % (42-75); PLATELET COUNT 732 x10^3/uL (130-400); RED BLOOD COUNT 5.09 x10^6/uL (4.38-5.82); RED CELL DISTRIBUTION WIDTH 15.8 % (9.4-14.8)
[2019-10-04 03:31] LABS: ANION GAP 6 mmol/L (5-15); CALCIUM 8.1 mg/dL (8.5-10.1); CHLORIDE 109 mmol/L (98-107); CREATININE 1.07 mg/dL (0.7-1.3)
[2019-10-04 03:36] LABS: CHOL/HDL RATIO 2.7; CHOLESTEROL, TOTAL 137 mg/dL (140-239); FREE T4 (FREE THYROXINE) 0.96 ng/dL (0.76-1.46); HDL CHOL % 37 % (26-37); HDL CHOLESTEROL (DIRECT) 51 mg/dL (40-60); LDL CHOLESTEROL,CALCULATED 74 mg/dL (54-169); LDL/HDL RATIO 1.5 (0.5-3.0); TRIGLYCERIDES 59 mg/dL (50-200); TROPONIN I 0.093 ng/mL (0.000-0.045); VLDL CHOLESTEROL 12 mg/dL (0-25)
[2019-10-04 07:45] VITALS: BP 123/80
[2019-10-04] MEDS: LIDODERM REMOVE PATCH NOTE XX SCH (08:00)
[2019-10-04] MEDS ORDERED: CLOPIDOGREL 75 MG TABLET PO SCH (10:30)
[2019-10-04] MEDS ORDERED: CITALOPRAM 20 MG TABLET PO SCH (10:30)
[2019-10-04] MEDS ORDERED: HEPARIN 5,000 UNITS/ML, 1ML IV ONE (11:00)
[2019-10-04] MEDS: ASPIRIN 81 MG TABLET EC PO SCH (11:27)
[2019-10-04] MEDS: HEPARIN 25,000 UNITS/500ML PMX 500 ML IV PRN (11:28)
[2019-10-04] MEDS: HEPARIN 5,000 UNITS/ML, 1ML IV PRN (11:28)
[2019-10-04 14:20] VITALS: BP 121/88
[2019-10-04] MEDS: GABAPENTIN 100 MG CAPSULE PO SCH ×2 (16:07→21:42)
[2019-10-04 19:12] VITALS: BP 127/82
[2019-10-04] MEDS: ATORVASTATIN 40 MG TABLET PO SCH (21:43)
[2019-10-04] MEDS: METOPROLOL TARTRATE 25 MG TABLET PO SCH (21:43)
[2019-10-05 01:55] VITALS: BP 116/75
[2019-10-05] MEDS: HEPARIN 5,000 UNITS/ML, 1ML IV PRN (02:18)
[2019-10-05 05:31] LABS: BASOPHILS # (AUTO) 0.13 x10^3/uL (0-0.1); BASOPHILS % (AUTO) 1 % (0-1); EOSINOPHILS # (AUTO) 0.39 x10^3/uL (0-0.4); EOSINOPHILS % (AUTO) 4 % (1-7); LYMPHOCYTES # (AUTO) 1.56 x10^3/uL (1-3.4); LYMPHOCYTES % (AUTO) 15 % (22-44); MD NO; MEAN CORPUSCULAR HEMOGLOBIN 29.8 pg (27.5-34.5); MEAN CORPUSCULAR HGB CONC 32.7 g/dL (33.2-36.2); MEAN CORPUSCULAR VOLUME 91.1 fL (81-97); MEAN PLATELET VOLUME 7.5 fL (7.4-10.4); MONOCYTES # (AUTO) 0.34 x10^3/uL (0.2-0.8); MONOCYTES % (AUTO) 3 % (2-9); NEUTROPHILS # (AUTO) 7.89 x10^3/uL (1.8-6.8); NEUTROPHILS % (AUTO) 77 % (42-75); PLATELET COUNT 679 x10^3/uL (130-400); RED BLOOD COUNT 5.06 x10^6/uL (4.38-5.82); RED CELL DISTRIBUTION WIDTH 16.1 % (9.4-14.8)
[2019-10-05 05:34] LABS: ANION GAP 5 mmol/L (5-15); CALCIUM 8.4 mg/dL (8.5-10.1); CHLORIDE 108 mmol/L (98-107)
[2019-10-05 05:37] LABS: CREATININE 1.07 mg/dL (0.7-1.3)
[2019-10-05] MEDS: HEPARIN 25,000 UNITS/500ML PMX 500 ML IV PRN (06:13)
[2019-10-05 07:36] VITALS: BP 117/74
[2019-10-05] MEDS: LOSARTAN 50MG TABLET PO SCH (08:00)
[2019-10-05] MEDS: METOPROLOL TARTRATE 25 MG TABLET PO SCH ×2 (08:00→20:27)
[2019-10-05] MEDS: LIDODERM REMOVE PATCH NOTE XX SCH (08:00)
[2019-10-05] MEDS: GABAPENTIN 100 MG CAPSULE PO SCH ×3 (08:00→20:27)
[2019-10-05] MEDS: ASPIRIN 81 MG TABLET EC PO SCH (08:00)
[2019-10-05] MEDS ORDERED: TICAGRELOR 90 MG TABLET ONE (11:44)
[2019-10-05] MEDS ORDERED: VERAPAMIL 2.5 MG/ML, 2ML ONE (11:44)
[2019-10-05] MEDS ORDERED: FENTANYL PF 100 MCG/2ML ONE (11:44)
[2019-10-05] MEDS ORDERED: MIDAZOLAM 1 MG/ML, 5ML ONE (11:44)
[2019-10-05] MEDS ORDERED: BIVALIRUDIN 250 MG ONE ×2 (11:45→13:37)
[2019-10-05] MEDS ORDERED: LIDOCAINE-MPF 1%, 5ML ONE (11:45)
[2019-10-05] MEDS ORDERED: NITROGLYCERIN 5 MG/ML, 10ML ONE (12:03)
[2019-10-05] MEDS ORDERED: BIVALIRUDIN 250 MG in SODIUM CHLORIDE 0.9% 50 ML IV SCH (13:48)
[2019-10-05] MEDS ORDERED: CLOPIDOGREL 300 MG TABLET ONE (13:50)
[2019-10-05 14:02] VITALS: BP 145/93
[2019-10-05] MEDS: SODIUM CHLORIDE 0.9% 1,000 ML IV SCH ×2 (14:35→20:32)
[2019-10-05] MEDS: ATORVASTATIN 40 MG TABLET PO SCH (20:27)
[2019-10-05 20:36] VITALS: BP 124/84
[2019-10-06 01:23] VITALS: BP 128/83
[2019-10-06] MEDS: SODIUM CHLORIDE 0.9% 1,000 ML IV SCH ×2 (04:08→13:48)
[2019-10-06 05:36] LABS: BASOPHILS # (AUTO) 0.02 x10^3/uL (0-0.1); BASOPHILS % (AUTO) 0 % (0-1); EOSINOPHILS # (AUTO) 0.29 x10^3/uL (0-0.4); EOSINOPHILS % (AUTO) 2 % (1-7); LYMPHOCYTES # (AUTO) 0.95 x10^3/uL (1-3.4); LYMPHOCYTES % (AUTO) 8 % (22-44); MD NO; MEAN CORPUSCULAR HEMOGLOBIN 29.7 pg (27.5-34.5); MEAN CORPUSCULAR HGB CONC 32.8 g/dL (33.2-36.2); MEAN CORPUSCULAR VOLUME 90.7 fL (81-97); MEAN PLATELET VOLUME 6.9 fL (7.4-10.4); MONOCYTES # (AUTO) 0.38 x10^3/uL (0.2-0.8); MONOCYTES % (AUTO) 3 % (2-9); NEUTROPHILS # (AUTO) 10.48 x10^3/uL (1.8-6.8); NEUTROPHILS % (AUTO) 87 % (42-75); PLATELET COUNT 791 x10^3/uL (130-400); RED BLOOD COUNT 5.26 x10^6/uL (4.38-5.82); RED CELL DISTRIBUTION WIDTH 15.6 % (9.4-14.8)
[2019-10-06 05:48] LABS: ANION GAP 4 mmol/L (5-15); CALCIUM 8.4 mg/dL (8.5-10.1); CHLORIDE 107 mmol/L (98-107); CREATININE 1.06 mg/dL (0.7-1.3)
[2019-10-06 07:32] VITALS: BP 126/82
[2019-10-06] MEDS: LIDODERM REMOVE PATCH NOTE XX SCH (08:00)
[2019-10-06] MEDS: LOSARTAN 50MG TABLET PO SCH (08:25)
[2019-10-06] MEDS: METOPROLOL TARTRATE 25 MG TABLET PO SCH (08:25)
[2019-10-06] MEDS: ASPIRIN 81 MG TABLET EC PO SCH (08:25)
[2019-10-06] MEDS: GABAPENTIN 100 MG CAPSULE PO SCH (08:25)
[2019-10-06] MEDS ORDERED: CLOPIDOGREL 75 MG TABLET PO SCH (09:00)
[2019-10-06] MEDS ORDERED: ASPIRIN 81 MG TABLET EC PO SCH (09:00)
[2019-10-06] MEDS ORDERED: GABA-826 PO (10:20)
[2019-10-06] MEDS ORDERED: ATOR40TA78 PO (10:20)
[2019-10-06] MEDS ORDERED: ASPI81TA45 PO (10:20)
[2019-10-06] MEDS ORDERED: CLOP75TA PO (10:20)
[2019-10-06] MEDS ORDERED: METO25TA35 PO (10:20)
[2019-10-06] MEDS ORDERED: NITR0.4T28 SL (10:20)
[2019-10-06] MEDS ORDERED: LOSA50TA14 PO (10:20)
== END 2019-10-06 15:00 | disposition home or self-care (01) | DRG 247 ==
LOC: ED 15:07 → EDIP 17:24 → 5SO 19:07
PROVIDERS: ADMIT Hospitalist; ATTEND Internal Medicine
PROC: 4A023N7 Measurement of Cardiac Sampling and Pressure, Left Heart, Percutaneous Approach (ICD-10-PCS; principal; 2019-10-05)
PROC: 027034Z Dilation of Coronary Artery, One Artery with Drug-eluting Intraluminal Device, Percutaneous Approach (ICD-10-PCS; 2019-10-05)
PROC: B211YZZ Fluoroscopy of Multiple Coronary Arteries using Other Contrast (ICD-10-PCS; 2019-10-05)
PROC: B215YZZ Fluoroscopy of Left Heart using Other Contrast (ICD-10-PCS; 2019-10-05)
DX: R07.89 Other chest pain (principal); F33.9 Major depressive disorder, recurrent, unspecified; I50.42 Chronic combined systolic (congestive) and diastolic (congestive) heart failure; R55 Syncope and collapse; G90.8 Other disorders of autonomic nervous system; E78.5 Hyperlipidemia, unspecified; I11.0 Hypertensive heart disease with heart failure; I25.10 Atherosclerotic heart disease of native coronary artery without angina pectoris; I25.2 Old myocardial infarction; Z86.73 Personal history of transient ischemic attack (TIA), and cerebral infarction without residual deficits; Z87.891 Personal history of nicotine dependence; Z91.19 Patient's noncompliance with other medical treatment and regimen
CPT/HCPCS: 36415; 87400; 93458; 96374; 99285; C9600; 70450; 71045; 80048; 80053; 80061; 80307; 83735; 84439; 84443; 84484; 85025; 85379; 85520; 93005; 93306; 95819; 99156; 99157; C1769; C1894; G0378; J0583; J1644; J1885; J2250; J3010; Q0162; C1725; C1757; C1874; C1887; J7030; Q9967

== ENCOUNTER 2019-11-16 08:23 | Inpatient (IN) | payer MEDICAID ==
[~2019-11-16] VITALS: Ht 170.2 cm; Wt 55.0 kg
[2019-11-16 09:03] LABS: BASOPHILS # (AUTO) 0.03 x10^3/uL (0-0.1); BASOPHILS % (AUTO) 0 % (0-1); EOSINOPHILS # (AUTO) 0.33 x10^3/uL (0-0.4); EOSINOPHILS % (AUTO) 4 % (1-7); LYMPHOCYTES # (AUTO) 0.93 x10^3/uL (1-3.4); LYMPHOCYTES % (AUTO) 10 % (22-44); MD NO; MEAN CORPUSCULAR HGB CONC 32.7 g/dL (33.2-36.2); MEAN CORPUSCULAR VOLUME 91.7 fL (81-97); MEAN PLATELET VOLUME 7.4 fL (7.4-10.4); MONOCYTES # (AUTO) 0.27 x10^3/uL (0.2-0.8); MONOCYTES % (AUTO) 3 % (2-9); NEUTROPHILS # (AUTO) 7.38 x10^3/uL (1.8-6.8); NEUTROPHILS % (AUTO) 83 % (42-75); PLATELET COUNT 960 x10^3/uL (130-400); RED BLOOD COUNT 5.36 x10^6/uL (4.38-5.82); RED CELL DISTRIBUTION WIDTH 15.2 % (9.4-14.8)
[2019-11-16 09:14] LABS: ALBUMIN 3.6 g/dL (3.4-5.0); ANION GAP 6 mmol/L (5-15); CALCIUM 8.4 mg/dL (8.5-10.1); CHLORIDE 108 mmol/L (98-107); CREATININE 1.13 mg/dL (0.7-1.3)
[2019-11-16 09:18] LABS: TROPONIN I < 0.015 ng/mL (0.000-0.045)
--- NOTE | 2019-11-16 09:23 | NUR ---
SEIZURE PADS PLACED ON PT'S ARRIVAL TO ER. PT SLEEPING AT THIS TIME. CONTINUE TO MONITOR.
--- NOTE | 2019-11-16 10:55 | NUR ---
AWAITING RE-EVAL. WATCHING TV
--- NOTE | 2019-11-16 11:08 | NUR ---
EVALUATING PT AND TALKING WITH HIM ABOUT ADMISSION TO HOSPITAL
[2019-11-16] MEDS ORDERED: SODIUM CHLORIDE FLUSH 10ML SYR IVF PRN (11:30)
--- NOTE | 2019-11-16 12:39 | NUR ---
REPORT TO ERICK RAMIREZ. PT TO BE TRANSPORTED TO FLOOR
--- NOTE | 2019-11-16 12:47 | NUR ---
OFF FLOOR TO RADIOLOGY
[2019-11-16] MEDS ORDERED: GADOTERATE 7.5 MMOL/15 ML SYR ONE (13:03)
--- NOTE | 2019-11-16 13:10 | NUR ---
returned from MRI
[2019-11-16 14:36] VITALS: BP 119/75
[2019-11-16] MEDS ORDERED: PROMETHAZINE 25 MG/ML, 1ML IM PRN (15:30)
[2019-11-16] MEDS ORDERED: ONDANSETRON 2MG/ML, 2ML IVPush PRN (15:30)
[2019-11-16] MEDS ORDERED: LORazepam 2 MG/ML, 1ML IVPush PRN (15:30)
[2019-11-16] MEDS ORDERED: HYDROcodone/APAP 5/325 TABLET PO PRN (15:30)
[2019-11-16] MEDS ORDERED: hydrALAzine 20 MG/ML, 1ML IVPush PRN (15:30)
[2019-11-16] MEDS ORDERED: DOCUSATE 100 MG CAPSULE PO PRN (15:30)
[2019-11-16] MEDS ORDERED: NITROGLYCERIN SINGLE TAB 0.4 MG SL PRN (15:30)
[2019-11-16] MEDS ORDERED: ONDANSETRON ODT 4 MG PO PRN (15:30)
[2019-11-16] MEDS ORDERED: ACETAMINOPHEN 325 MG TABLET PO PRN (15:30)
[2019-11-16] MEDS ORDERED: POLYETHYLENE GLYCOL 17 GM PACKET PO PRN (15:30)
[2019-11-16] MEDS ORDERED: BISACODYL 10 MG SUPP PR PRN (15:30)
[2019-11-16] MEDS: GABAPENTIN 100 MG CAPSULE PO SCH ×2 (15:35→20:24)
[2019-11-16] MEDS: SODIUM CHLORIDE 0.9% 1,000 ML IV SCH ×2 (15:35→22:16)
[2019-11-16] MEDS: HEPARIN 5,000 UNITS/ML, 1ML SQ SCH (15:50)
[2019-11-16 16:24] LABS: MICROSCOPIC NOT IND
[2019-11-16 16:35] LABS: CULTURE INDICATED? NO
[2019-11-16 17:18] LABS: FREE T4 (FREE THYROXINE) 0.86 ng/dL (0.76-1.46)
[2019-11-16 19:54] VITALS: BP 123/79
[2019-11-16] MEDS: ATORVASTATIN 40 MG TABLET PO SCH (20:24)
[2019-11-16] MEDS: METOPROLOL TARTRATE 25 MG TABLET PO SCH (20:24)
[2019-11-17] MEDS: HEPARIN 5,000 UNITS/ML, 1ML SQ SCH ×3 (00:04→18:08)
[2019-11-17 00:37] VITALS: BP 105/67
[2019-11-17 05:01] LABS: BASOPHILS # (AUTO) 0.03 x10^3/uL (0-0.1); BASOPHILS % (AUTO) 0 % (0-1); EOSINOPHILS # (AUTO) 0.14 x10^3/uL (0-0.4); EOSINOPHILS % (AUTO) 1 % (1-7); LYMPHOCYTES # (AUTO) 0.89 x10^3/uL (1-3.4); LYMPHOCYTES % (AUTO) 5 % (22-44); MD NO; MEAN CORPUSCULAR HEMOGLOBIN 29.8 pg (27.5-34.5); MEAN CORPUSCULAR HGB CONC 32.7 g/dL (33.2-36.2); MEAN CORPUSCULAR VOLUME 91.2 fL (81-97); MEAN PLATELET VOLUME 7.4 fL (7.4-10.4); MONOCYTES # (AUTO) 0.16 x10^3/uL (0.2-0.8); MONOCYTES % (AUTO) 1 % (2-9); NEUTROPHILS # (AUTO) 15.28 x10^3/uL (1.8-6.8); NEUTROPHILS % (AUTO) 93 % (42-75); PLATELET COUNT 775 x10^3/uL (130-400); RED BLOOD COUNT 4.86 x10^6/uL (4.38-5.82); RED CELL DISTRIBUTION WIDTH 15.7 % (9.4-14.8)
[2019-11-17 05:08] LABS: CHLORIDE 108 mmol/L (98-107)
[2019-11-17 05:09] LABS: ALBUMIN 3.2 g/dL (3.4-5.0); ANION GAP 8 mmol/L (5-15); CALCIUM 8.1 mg/dL (8.5-10.1)
[2019-11-17 05:12] LABS: ALANINE AMINOTRANSFERASE 26 U/L (12-78); ALKALINE PHOSPHATASE 49 U/L (45-117); BILIRUBIN,TOTAL 1.3 mg/dL (0.2-1.0); CHOL/HDL RATIO 2.3; CHOLESTEROL, TOTAL 99 mg/dL (140-239); CREATININE 0.89 mg/dL (0.7-1.3); HDL CHOL % 44 % (26-37); HDL CHOLESTEROL (DIRECT) 44 mg/dL (40-60); LDL CHOLESTEROL,CALCULATED 40 mg/dL (54-169); LDL/HDL RATIO 0.9 (0.5-3.0); TOTAL PROTEIN 6.2 g/dL (6.4-8.2); TRIGLYCERIDES 76 mg/dL (50-200); VLDL CHOLESTEROL 15 mg/dL (0-25)
[2019-11-17 05:13] LABS: HEMOGLOBIN A1C 5.1 % (4.2-6.3)
[2019-11-17] MEDS: SODIUM CHLORIDE 0.9% 1,000 ML IV SCH (05:18)
[2019-11-17 07:20] VITALS: BP 114/73
[2019-11-17] MEDS: LOSARTAN 50MG TABLET PO SCH (10:08)
[2019-11-17] MEDS: GABAPENTIN 100 MG CAPSULE PO SCH ×3 (10:08→20:41)
[2019-11-17] MEDS: ASPIRIN 81 MG TABLET EC PO SCH (10:08)
[2019-11-17] MEDS: METOPROLOL TARTRATE 25 MG TABLET PO SCH ×2 (10:08→20:41)
[2019-11-17] MEDS: CLOPIDOGREL 75 MG TABLET PO SCH (10:08)
[2019-11-17 12:36] VITALS: BP 123/78
[2019-11-17 19:56] VITALS: BP 126/80
[2019-11-17 20:40] VITALS: BP 127/76
[2019-11-17] MEDS: ATORVASTATIN 40 MG TABLET PO SCH (20:41)
[2019-11-18] MEDS: HEPARIN 5,000 UNITS/ML, 1ML SQ SCH ×2 (02:46→09:35)
[2019-11-18 02:48] VITALS: BP 117/75
[2019-11-18 06:53] VITALS: BP 117/76
[2019-11-18] MEDS: ASPIRIN 81 MG TABLET EC PO SCH (09:34)
[2019-11-18] MEDS: LOSARTAN 50MG TABLET PO SCH (09:34)
[2019-11-18] MEDS: METOPROLOL TARTRATE 25 MG TABLET PO SCH (09:34)
[2019-11-18] MEDS: CLOPIDOGREL 75 MG TABLET PO SCH (09:35)
[2019-11-18] MEDS: GABAPENTIN 100 MG CAPSULE PO SCH ×2 (09:35→16:14)
[2019-11-18] MEDS ORDERED: LEVE500T53 PO (13:54)
[2019-11-18 14:04] VITALS: BP 119/79
[2019-11-18] MEDS ORDERED: LEVETIRACETAM 500 MG TABLET PO SCH (14:06)
[2019-11-18] MEDS ORDERED: FLU VACC QS2019-20 36MOS UP/PF 0.5 ML IM-VACC ONE (15:00)
[2019-11-18] MEDS ORDERED: LEVETIRACETAM 500 MG TABLET PO ONE (16:00)
== END 2019-11-18 17:07 | disposition home or self-care (01) | DRG 101 ==
LOC: ED 11:13 → EDIP 11:14 → ED 11:34 → 4WST 13:58
PROVIDERS: ADMIT Internal Medicine; ATTEND Internal Medicine
DX: G40.89 Other seizures (principal); D47.3 Essential (hemorrhagic) thrombocythemia; E78.5 Hyperlipidemia, unspecified; F32.9 Major depressive disorder, single episode, unspecified; I10 Essential (primary) hypertension; I25.10 Atherosclerotic heart disease of native coronary artery without angina pectoris; I25.2 Old myocardial infarction; I25.5 Ischemic cardiomyopathy; I25.82 Chronic total occlusion of coronary artery; R04.0 Epistaxis; Z86.73 Personal history of transient ischemic attack (TIA), and cerebral infarction without residual deficits; Z95.5 Presence of coronary angioplasty implant and graft
CPT/HCPCS: 36415; 70553; 71045; 80048; 80053; 80061; 80171; 81003; 82040; 82550; 83036; 83735; 84439; 84443; 84484; 85025; 90686; 93005; 95819; 99285; G0378; J1644; A9575; J7030

== ENCOUNTER 2020-03-04 11:55 | Emergency (ER) | payer SELFPAY ==
[~2020-03-04] VITALS: Ht 172.7 cm; Wt 58.6 kg
[~2020-03-04 11:55] MED LIST changes: +LEVE500T53 PO
[2020-03-04 11:59] VITALS: BP 154/103
[2020-03-04] MEDS ORDERED: LIDOCAINE-MPF 1%, 5ML ONE (12:18)
[2020-03-04] MEDS ORDERED: DIPH,PERTUSS(ACELL),TET VAC/PF 0.5 ML IM-VACC ONE ×2 (12:23→12:30)
[2020-03-04] MEDS ORDERED: LIDOCAINE 1%, 10ML INFIL ONE (12:30)
[2020-03-04] MEDS ORDERED: NEOSPORIN OINT. PKT 1 PACKET ONE ×2 (12:49→12:59)
[2020-03-04] MEDS ORDERED: BACITRACIN OINT 500U/GM, 15 GM TP SCH (21:00)
== END 2020-03-04 13:06 | disposition home or self-care (01) ==
LOC: ED 12:13
DX: S01.81XA Laceration without foreign body of other part of head, initial encounter (principal); W01.0XXA Fall on same level from slipping, tripping and stumbling without subsequent striking against object, initial encounter; Y93.89 Activity, other specified; Y92.009 Unspecified place in unspecified non-institutional (private) residence as the place of occurrence of the external cause; Y99.8 Other external cause status
CPT/HCPCS: 12011; 90471; 90715